=== PATIENT | female | born 1970 | race Caucasian/White ===

== ENCOUNTER 2017-05-17 13:06 | Observation (INO) | payer OTHER ==
[~2017-05-17] VITALS: Ht 167.6 cm; Wt 148.0 kg
[~2017-05-17 13:06] MED LIST: CLX20 PO; ESTR0.3T PO; LSN/20125 PO
[2017-05-17 14:20] LABS: BASO % 0.1 %; BASO ABS # 0.02 K/uL (0-0.2); EOS % 0.9 %; EOS ABS # 0.12 K/uL (0-0.5); HEMATOCRIT 38.7 % (37-47); HEMOGLOBIN 12.9 g/dL (12.0-16.0); IG# 0.03 K/uL (0.00-0.02); LYMPH % 12.5 %; LYMPH ABS # 1.67 K/uL (1.2-3.4); MEAN CELL VOLUME 85.8 fL (80-100); MEAN CORPUSCULAR HEMOGLOBIN 28.6 pg (25-34); MEAN CORPUSCULAR HGB CONC 33.3 g/dl (32-36); MEAN PLATELET VOLUME 10.1 fL (7.4-10.4); MONO % 4.6 %; MONO ABS # 0.62 K/uL (0.11-0.59); NEUT % 81.7 %; PLATELET COUNT 280 K/uL (130-400); RED CELL DISTRIBUTION WIDTH CV 14.1 % (11.5-14.5); RED CELL DISTRIBUTION WIDTH SD 43.8 fL (36.4-46.3); WHITE BLOOD COUNT 13.36 K/uL (4.8-10.8)
[2017-05-17 14:38] LABS: ALBUMIN 3.1 gm/dl (3.4-5.0); ALT/SGPT 16 U/L (12-78); AST/SGOT 9 U/L (15-37); BLOOD UREA NITROGEN 13 mg/dl (7-18); CALCIUM 8.4 mg/dl (8.5-10.1); CARBON DIOXIDE 27 mmol/L (21-32); CREATININE 0.73 mg/dl (0.60-1.20); GLUCOSE 94 mg/dl (70-99); POTASSIUM 3.8 mmol/L (3.5-5.1); SODIUM 139 mmol/L (136-145)
[2017-05-17 14:43] LABS: ALKALINE PHOSPHATASE 78 U/L (45-117); CKMB < 0.5 ng/ml (0.5-3.6); TOTAL PROTEIN 6.9 gm/dl (6.4-8.2)
[2017-05-17] MEDS ORDERED: ALBUT/IPRATROP 3MG/0.5MG NEB 3 ML VIAL INH STA (14:46)
[2017-05-17] MEDS ORDERED: CLOB-77 TOP (15:40)
[2017-05-17] MEDS ORDERED: LISI1TAB3 PO (15:40)
[2017-05-17] MEDS ORDERED: HYDR25TA5 PO (15:40)
[2017-05-17] MEDS ORDERED: CITA20TA9 PO (15:40)
[2017-05-17] MEDS ORDERED: GLC/500 PO (15:40)
[2017-05-17] MEDS ORDERED: ESTR0.3T PO (15:40)
[2017-05-17] MEDS ORDERED: PRMVC PV (15:40)
--- NOTE | 2017-05-17 16:45 | History and Physical ---
History & Physical Date & Time of Service: May 17, 2017 at 16:45 Chief Complaint: Sob- Referred By Primary Care Physician: Daphne Mejia D.O. History of Present Illness Source: patient, clinic records, hospital records This is a 47yo F with HTN, metabolic syndrome, LUIS on CPAP who presents with SOB and chest pressure beginning last evening. Patient was getting ready for bed last night when her noted that her breathing was shallow. States that she was becoming dyspneic when walking around the house, which is not normal for her. Feels unable to take a deep breath without coughing. Associated with chest pressure that feels like "a brick on my chest". No radiation to arms or neck and denies any true pain. Endorses episodes of sweating and chills last night. [place] SOB despite wearing CPAP machine. Went to PCP today and had a EKG and chest/thorax CTA with contrast. EKG did not show any acute changes and the CTA was negative for PE. Continued to feel SOB and have chest pressure at rest and was sent to the ED for further evaluation. During evaluation here, patient' s O2 saturation dropped to 83% with ambulation. No recent URI. Denies history of heart disease, DVT, asthma. Non-smoker. Has never had a stress test. Is on estrogen. Denies fever, chills, headache, lightheadedness, visual changes, diaphoresis, palpitations, abdominal pain, nausea, vomiting, bowel or bladder changes or LE swelling. + history of heart disease (father) Past Medical/Surgical History Medical Problems: (1) H/O renal calculi Status: Chronic (2) HTN (hypertension) Status: Chronic (3) Metabolic syndrome Status: Chronic (4) Mood disorder Status: Chronic (5) Morbid obesity Status: Chronic (6) LUIS on CPAP Status: Chronic Family History Diabetes mellitus FH: breast cancer FH: heart disease Hypertension Social History Smoking Status: Never Smoker Alcohol Use: occasionally Marital Status: Housing status: lives with family Occupational Status: employed Multi-Drug Resistant Organisms History of MDRO: No Allergies Coded Allergies: No Known Allergies (Verified , 05/17/17) Home Medications Scheduled Citalopram Hydrobromide (Celexa), 20 MG PO DAILY Clobetasol Propionate (Temovate), 1 APPLN TOP UD Estrogens, Conjugated (Premarin), 0.15 MG PO DAILY Hydrochlorothiazide (Hydrochlorothiazide), 25 MG PO DAILY Lisinopril (Zestril), 30 MG PO DAILY Metformin Hcl (Glucophage), 1,000 MG PO DAILY Review of Systems Ten systems reviewed and negative except as noted in the HPI. Physical Exam Vital Signs Date Time Temp Pulse Resp B/P (MAP) Pulse Ox O2 Delivery O2 Flow Rate FiO2 05/17/17 15:41 88 05/17/17 15:41 83 Room Air 05/17/17 14:58 84 21 132/74 92 05/17/17 13:54 87 05/17/17 13:48 87 05/17/17 13:47 92 Room Air 05/17/17 13:08 37.1 88 18 170/105 94 Room Air General Appearance: no apparent distress, + pertinent finding (Morbidly obese. Conversational, breathing comfortably on room air. ) Head: normocephalic, atraumatic Eyes: normal inspection, sclerae normal ENT: normal ENT inspection, hearing grossly normal, pharynx normal Neck: supple, thyroid normal, trachea midline Respiratory/Chest: chest non-tender, lungs clear, no respiratory distress, no accessory muscle use, + decreased breath sounds Cardiovascular: regular rate, rhythm, no murmur, normal peripheral pulses Abdomen/GI: non tender, soft, no organomegaly Back: normal inspection Extremities/Musculoskelatal: normal inspection, no calf tenderness, no pedal edema Neurologic/Psych: no motor/sensory deficits, alert, normal mood/affect, oriented x 3 Skin: normal color, warm/dry Diagnostics Laboratory Results Results Past 24 Hours Test 05/17/17 13:57 05/17/17 13:58 05/17/17 14:17 Range/Units Sodium Level 139 136-145 mmol/L Potassium Level 3.8 3.5-5.1 mmol/L Chloride Level 105 98-107 mmol/L Carbon Dioxide Level 27 21-32 mmol/L Anion Gap 7.0 3-11 mmol/L Blood Urea Nitrogen 13 7-18 mg/dl Creatinine 0.73 0.60-1.20 mg/dl Est Creatinine Clear Calc Drug Dose 147.1 ml/min Estimated GFR () 115.3 Estimated GFR (Non- 99.5 BUN/Creatinine Ratio 17.9 10-20 Random Glucose 94 70-99 mg/dl Calcium Level 8.4 8.5-10.1 mg/dl Total Bilirubin 0.5 0.2-1 mg/dl Aspartate Amino Transf (AST/SGOT) 9 15-37 U/L Alanine Aminotransferase (ALT/SGPT) 16 12-78 U/L Alkaline Phosphatase 78 45-117 U/L Total Creatine Kinase 63 26-192 U/L Creatine Kinase MB < 0.5 0.5-3.6 ng/ml Creatine Kinase MB Ratio 0-3.0 Total Protein 6.9 6.4-8.2 gm/dl Albumin 3.1 3.4-5.0 gm/dl Globulin 3.8 2.5-4.0 gm/dl Albumin/Globulin Ratio 0.8 0.9-2 White Blood Count 13.36 4.8-10.8 K/uL Red Blood Count 4.51 4.2-5.4 M/uL Hemoglobin 12.9 12.0-16.0 g/dL Hematocrit 38.7 37-47 % Mean Corpuscular Volume 85.8 80-100 fL Mean Corpuscular Hemoglobin 28.6 25-34 pg Mean Corpuscular Hemoglobin Concent 33.3 32-36 g/dl Platelet Count 280 130-400 K/uL Mean Platelet Volume 10.1 7.4-10.4 fL Neutrophils (%) (Auto) 81.7 % Lymphocytes (%) (Auto) 12.5 % Monocytes (%) (Auto) 4.6 % Eosinophils (%) (Auto) 0.9 % Basophils (%) (Auto) 0.1 % Neutrophils # (Auto) 10.90 1.4-6.5 K/uL Lymphocytes # (Auto) 1.67 1.2-3.4 K/uL Monocytes # (Auto) 0.62 0.11-0.59 K/uL Eosinophils # (Auto) 0.12 0-0.5 K/uL Basophils # (Auto) 0.02 0-0.2 K/uL RDW Standard Deviation 43.8 36.4-46.3 fL RDW Coefficient of Variation 14.1 11.5-14.5 % Immature Granulocyte % (Auto) 0.2 % Immature Granulocyte # (Auto) 0.03 0.00-0.02 K/uL Bedside Troponin I < 0.030 0-0.045 ng/ml Diagnostic Radiology Chest/thorax CTA (from [facility] today): IMPRESSION 1. No pulmonary embolism identified. 2. Scattered areas of mosaic ground-glass attenuation in the lungs suggesting small airways disease. EKG Normal sinus rhythm. Normal ECG Impression Assessment and Plan This is a 47yo F with HTN, metabolic syndrome, LUIS on CPAP who presents with SOB and chest pressure beginning last evening. SOB: -Chest/thorax CTA done in clinic to rule out PE -No pulmonary embolism identified -Scattered areas of mosaic ground-glass attenuation in the lungs suggesting small airways disease -O2 saturation in 90s at rest but decreased to 83% with ambulation -Likely a component of obesity hypoventilation syndrome -No URI symptoms but leukocytosis of 13.36 -Continue duonebs PRN -Monitor Chest pressure: -R/o ACS; risk factors include morbid obesity, HTN, family history of heart disease -Initial troponin negative -EKG- NSR. No acute ischemic changes -Trend serial cardiac enzymes -Fasting lipid panel, a1c -Check echo -Repeat EKG in am -Plan for stress test tomorrow -NPO after midnight except meds HTN: -Cont home lisinopril, HCTZ LUIS: -Cont cpap Metabolic syndrome: -Metformin held 2/2 contrast dye Mood disorder: -Cont SSRI DVT Ppx: SQ lovenox Code status: FULL PCP: Aliyah Mejia Dispo: Telemetry observation. Plan to return home once medically stable. Patient seen in collaboration with Dr. Hodges. Please see addendum. ATTENDING ADDENDUM : Patient seen and examined, care coordinated with Azra Andino PA-C. This is a 37-year-old female with past medical history of hypertension, obstructive sleep apnea on CPAP, presented to the ER with complaint of substernal chest discomfort shortness of breath dyspnea on exertion Patient had CT chest with contrast in out pt clinic which was negative for pulmonary embolism Physical exam ; as per Azra Andino PA-C Assessment and plan 1. Chest pain angina, rule out ACS at present pt is chest pain free Initial cardiac markers negative EKG normal sinus rhythm no acute ischemic change Serial cardiac markers will be followed Resting echo ordered Cardiac stress test tomorrow if serial cardiac markers are negative and patient is chest pain free 2. Hypertension Blood pressure stable continue home medication of lisinopril, hydrochlorothiazide 3.Obstructive sleep apnea Continue CPAP at night Full code DVT prophylaxis moderate to high risk secondary to obesity Subcu Lovenox ordered Disposition : Expected to be discharged home when medically stable Medicine follow-up with Dr. Daphne Otto Please refer to further documentation of Azra Andino PA-C for discussion of other chronic issue Sapna Hodges MD Level of Care Telemetry Resuscitation Status FULL RESUSCITATION VTE Prophylaxis VTE Risk Assessment Done? Y/N: Yes Risk Level: Moderate Given or contraindicated: Enoxaparin (Lovenox)SQ
[2017-05-17] MEDS ORDERED: IV FLUIDS COMPLETED PRN (17:00)
[2017-05-17] MEDS ORDERED: ONDANSETRON INJ 2 MG/ML 2 ML VIAL IV PRN (17:15)
[2017-05-17] MEDS ORDERED: ACETAMINOPHEN 325 MG TAB PO PRN (17:15)
[2017-05-17] MEDS ORDERED: ALUMINUM/MAGNESIUM/SIMETH (MAALOX MAX) 30 ML UDC PO PRN (17:15)
[2017-05-17] MEDS ORDERED: MAGNESIUM HYDROXIDE SUSP 30 ML UDC PO PRN (17:15)
[2017-05-17 18:13] VITALS: BP 161/83; PULSE 90; TEMP 36.9; O2SAT 92; Ht 167.6 cm; Wt 148.0 kg
[2017-05-17] MEDS ORDERED: ALBUT/IPRATROP 3MG/0.5MG NEB 3 ML VIAL INH PRN (18:15)
[2017-05-17] MEDS ORDERED: ENOXAPARIN 40 MG/0.4 ML SYR SC SCH (19:00)
[2017-05-17] MEDS ORDERED: ASPIRIN 81 MG ECTAB PO ONE (19:02)
[2017-05-17] MEDS ORDERED: LORAZEPAM 0.5 MG TAB PO PRN (19:15)
--- NOTE | 2017-05-17 19:27 | EMERGENCY ROOM VISIT NOTE ---
History First contact with patient: 13:32 Chief Complaint: REFERRED BY DOCTOR Stated Complaint: CHEST PAIN, SOB ON EXERTION History of Present Illness The patient is a 47 year old female who presents to the Emergency Room with complaints of chest pain and shortness of breath. The patient reports that she has had pain in the left shoulder/chest as well as a feeling of pressure in the center of her chest since yesterday evening. She has been short of breath associated with this. She states the symptoms started when she was walking from her bathroom to her bedroom. The symptoms worsen with exertion. She was seen by her primary care provider's office today and had an EKG and CAT scan to rule out blood clot which she states were normal. She was sent here because her oxygen levels remained low. She states that she has not been feeling well and her notes that she does not seem like herself. She has had a mild cough associated with the shortness of breath and the states that it seems like she is breathing differently than normal. Patient is on estrogen replacement, denies history of blood clots. She is not a smoker. She reports a history of hypertension and prediabetes on metformin. Her father of an NH and had his first NH at age 43. She denies any personal history of cardiac disease. She does admit to a history of obstructive sleep apnea and uses CPAP at night. Review of Systems A complete 10 point review of systems was reviewed with the patient with pertinent positives and negatives as per history of present illness. All else were negative. Past Medical/Surgical History Medical Problems: (1) H/O renal calculi (2) HTN (hypertension) (3) Metabolic syndrome (4) Mood disorder (5) Morbid obesity (6) LUIS on CPAP Surgical Problems: (1) S/P hysterectomy Family History Diabetes mellitus FH: breast cancer FH: heart disease Hypertension Social History Smoking Status: Never Smoker Alcohol Use: occasionally Marital Status: Housing Status: lives with family Occupation Status: employed Current/Historical Medications Scheduled Citalopram Hydrobromide (Celexa), 20 MG PO DAILY Clobetasol Propionate (Temovate), 1 APPLN TOP UD Estrogens, Conjugated (Premarin), 0.15 MG PO DAILY Hydrochlorothiazide (Hydrochlorothiazide), 25 MG PO DAILY Lisinopril (Zestril), 30 MG PO DAILY Metformin Hcl (Glucophage), 1,000 MG PO DAILY Physical Exam Vital Signs Date Time Temp Pulse Resp B/P (MAP) Pulse Ox O2 Delivery O2 Flow Rate FiO2 05/17/17 15:41 88 05/17/17 15:41 83 Room Air 05/17/17 14:58 84 21 132/74 92 05/17/17 13:54 87 05/17/17 13:48 87 05/17/17 13:47 92 Room Air 05/17/17 13:08 37.1 88 18 170/105 94 Room Air Physical Exam VITALS: Vitals are noted on the nurse's note and reviewed by myself. Vital signs stable. GENERAL: This is a 47-year-old female, in no acute distress, nondiaphoretic, well-developed well-nourished. SKIN: The skin was without rashes. EARS: External auditory canals clear, tympanic membranes pearly rios without erythema or effusion bilaterally. EYES: Pupils equal round and reactive to light and accommodation. MOUTH: Mucous membranes moist. Tonsils are not enlarged. Pharynx without erythema or exudate. NECK: Supple without nuchal rigidity. No lymphadenopathy. HEART: Regular rate and rhythm without murmurs gallops or rubs. LUNGS: Clear to auscultation bilaterally without wheezes, rales or rhonchi. No retractions or accessory muscle use. ABDOMEN: Positive bowel sounds x 4. Soft, nontender to palpation. NEURO: Patient was alert and oriented to person place and time. Medical Decision & Procedures Laboratory Results 05/17/17 13:58 Red Blood Count 4.51, Mean Corpuscular Volume 85.8, Mean Corpuscular Hemoglobin 28.6, Mean Corpuscular Hemoglobin Concent 33.3, Mean Platelet Volume 10.1, Neutrophils (%) (Auto) 81.7, Lymphocytes (%) (Auto) 12.5, Monocytes (%) (Auto) 4.6, Eosinophils (%) (Auto) 0.9, Basophils (%) (Auto) 0.1, Neutrophils # (Auto) 10.90, Lymphocytes # (Auto) 1.67, Monocytes # (Auto) 0.62, Eosinophils # (Auto) 0.12, Basophils # (Auto) 0.02 05/17/17 13:57 Test 05/17/17 13:57 05/17/17 13:58 05/17/17 14:17 Anion Gap 7.0 mmol/L (3-11) Est Creatinine Clear Calc Drug Dose 147.1 ml/min Estimated GFR () 115.3 Estimated GFR (Non- 99.5 BUN/Creatinine Ratio 17.9 (10-20) Calcium Level 8.4 mg/dl (8.5-10.1) Total Bilirubin 0.5 mg/dl (0.2-1) Aspartate Amino Transf (AST/SGOT) 9 U/L (15-37) Alanine Aminotransferase (ALT/SGPT) 16 U/L (12-78) Alkaline Phosphatase 78 U/L (45-117) Total Creatine Kinase 63 U/L (26-192) Creatine Kinase MB < 0.5 ng/ml (0.5-3.6) Creatine Kinase MB Ratio (0-3.0) Total Protein 6.9 gm/dl (6.4-8.2) Albumin 3.1 gm/dl (3.4-5.0) Globulin 3.8 gm/dl (2.5-4.0) Albumin/Globulin Ratio 0.8 (0.9-2) White Blood Count 13.36 K/uL (4.8-10.8) Red Blood Count 4.51 M/uL (4.2-5.4) Hemoglobin 12.9 g/dL (12.0-16.0) Hematocrit 38.7 % (37-47) Mean Corpuscular Volume 85.8 fL (80-100) Mean Corpuscular Hemoglobin 28.6 pg (25-34) Mean Corpuscular Hemoglobin Concent 33.3 g/dl (32-36) Platelet Count 280 K/uL (130-400) Mean Platelet Volume 10.1 fL (7.4-10.4) Neutrophils (%) (Auto) 81.7 % Lymphocytes (%) (Auto) 12.5 % Monocytes (%) (Auto) 4.6 % Eosinophils (%) (Auto) 0.9 % Basophils (%) (Auto) 0.1 % Neutrophils # (Auto) 10.90 K/uL (1.4-6.5) Lymphocytes # (Auto) 1.67 K/uL (1.2-3.4) Monocytes # (Auto) 0.62 K/uL (0.11-0.59) Eosinophils # (Auto) 0.12 K/uL (0-0.5) Basophils # (Auto) 0.02 K/uL (0-0.2) RDW Standard Deviation 43.8 fL (36.4-46.3) RDW Coefficient of Variation 14.1 % (11.5-14.5) Immature Granulocyte % (Auto) 0.2 % Immature Granulocyte # (Auto) 0.03 K/uL (0.00-0.02) Bedside Troponin I < 0.030 ng/ml (0-0.045) Medications Administered Medications (Trade) Dose Ordered Sig/Yahir Route Start Time Stop Time Status Last Admin Dose Admin Albuterol/ Ipratropium (Duoneb) 3 ml NOW STAT INH 05/17/17 14:46 05/17/17 14:47 DC 05/17/17 14:58 3 ML ECG Per My Interpretation Indication: SOB/dyspnea Rate (beats per minute): 88 Rhythm: normal sinus Findings: no acute ischemic change, no ectopy ED Course The patient was evaluated as above. Labs were drawn and IV access was obtained. Patient was medicated with a DuoNeb treatment. Patient was reevaluated and stated she felt somewhat better. An ambulatory trial was performed. Case was discussed with the [facility]ist, Dr. Hodges. They agreed to evaluate the patient for admission. Medical Decision Differential diagnosis includes acute coronary syndrome, pulmonary embolism, pneumothorax, reactive airway disease, pneumonia, pericarditis, myocarditis, endocarditis, anxiety, musculoskeletal pain, GERD, costochondritis, among others. The patient is a 47-year-old female who presents today complaining of exertional chest tightness/shortness of breath. Labs revealed mild leukocytosis of around 13,000. There was no significant anemia or concerning electrolyte abnormalities. Troponin was not elevated. Patient previously had an outpatient CT performed which was negative for pulmonary embolism. This did show some scattered opacities which could be consistent with small airway disease. EKG was interpreted by myself and did not show any ischemic changes. I feel the patient's symptoms are likely secondary to a pulmonary cause, however she had little improvement with DuoNeb and on ambulatory trial had reproducible chest tightness and decreased oxygen saturation. Due to the exertional component and patient's risk factors (obesity, hypertension, family history) I feel further workup is warranted to exclude cardiac source. Patient was admitted to the [facility] hospitalist service for further evaluation and care. Medication Reconcilliation Current Medication List: was personally reviewed by me Blood Pressure Screening Patient's blood pressure: Elevated blood pressure (Will be followed by hospitalist) Impression Primary Impression: SOB (shortness of breath) on exertion Additional Impression: Chest pain Departure Information Dispostion Still a Patient Condition FAIR Referrals Daphne Mejia D.O. (PCP) Forms WORK / SCHOOL INSTRUCTIONS, HOME CARE DOCUMENTATION FORM, IMPORTANT VISIT INFORMATION Patient Instructions My [facility] Health Problem Qualifiers
[2017-05-17 20:00] VITALS: BP 151/73; PULSE 87; TEMP 37.2; O2SAT 93
[2017-05-17 20:40] LABS: PTT PATIENT 27.2 SECONDS (21.0-31.0)
[2017-05-17 23:44] VITALS: BP 124/72; PULSE 84; TEMP 37; O2SAT 97
[2017-05-18 02:17] LABS: HEMATOCRIT 38.5 % (37-47); HEMOGLOBIN 12.5 g/dL (12.0-16.0); MEAN CELL VOLUME 86.9 fL (80-100); MEAN CORPUSCULAR HEMOGLOBIN 28.2 pg (25-34); MEAN CORPUSCULAR HGB CONC 32.5 g/dl (32-36); MEAN PLATELET VOLUME 10.2 fL (7.4-10.4); PLATELET COUNT 252 K/uL (130-400); RED CELL DISTRIBUTION WIDTH CV 14.1 % (11.5-14.5); RED CELL DISTRIBUTION WIDTH SD 44.7 fL (36.4-46.3); WHITE BLOOD COUNT 9.34 K/uL (4.8-10.8)
[2017-05-18 02:35] LABS: CALCIUM 8.5 mg/dl (8.5-10.1); CREATININE 0.78 mg/dl (0.60-1.20); POTASSIUM 3.6 mmol/L (3.5-5.1)
[2017-05-18 03:10] VITALS: BP 137/50; PULSE 78; TEMP 36.9; O2SAT 95
[2017-05-18 04:00] VITALS: O2SAT 95
[2017-05-18 07:43] VITALS: BP 141/82; PULSE 66; TEMP 37; O2SAT 98
[2017-05-18] MEDS ORDERED: ESTROGENS, CONJUGATED 0.3 MG TAB PO SCH (09:00)
[2017-05-18] MEDS ORDERED: ASPIRIN 81 MG ECTAB PO SCH (09:00)
[2017-05-18] MEDS ORDERED: CITALOPRAM 20 MG TAB PO SCH (09:00)
[2017-05-18] MEDS ORDERED: HYDROCHLOROTHIAZIDE 25 MG TAB PO SCH (09:00)
[2017-05-18] MEDS ORDERED: LISINOPRIL 10 MG TAB PO SCH (09:00)
--- NOTE | 2017-05-18 10:15 | Progress Note ---
Medicine Progress Note Date & Time of Visit: May 18, 2017 at 10:05. (Azra Andino, P.A.-C.) Subjective Patient seen and examined. Resting comfortably in bed. No longer experiencing chest tightness or SOB. Denies lightheadedness, headache, cough, palpitations, nausea, vomiting, LE swelling. Waiting for exercise stress test. (Azra Andino, P.A.-C.) Objective Last 8 Hrs Date Time Temp Pulse Resp B/P (MAP) Pulse Ox O2 Delivery O2 Flow Rate FiO2 05/18/17 07:43 37.0 66 20 141/82 (101) 98 05/18/17 04:00 95 Room Air 05/18/17 03:10 36.9 78 18 137/50 (79) 95 Physical Exam: General Appearance: WD/WN, no apparent distress Head: normocephalic, atraumatic Eyes: normal inspection, PERRL, EOMI ENT: hearing grossly normal, pharynx normal Neck: supple, no JVD, no adenopathy Respiratory/Chest: lungs clear to auscultation. No wheezes, rales or rhonci. No respiratory distress or accessory muscle use Cardiovascular: regular rate, rhythm, no murmur, normal peripheral pulses Abdomen/GI: normal bowel sounds, soft, non-tender to palpation Extremities/Musculoskelatal: normal inspection, no calf tenderness, normal capillary refill, no pedal edema Neurologic/Psych: alert, normal mood/affect, oriented x 3 Skin: normal color, warm/dry Laboratory Results: Last 24 Hours Test 05/17/17 13:57 05/17/17 13:58 05/17/17 14:17 05/17/17 19:54 Sodium Level 139 mmol/L Potassium Level 3.8 mmol/L Chloride Level 105 mmol/L Carbon Dioxide Level 27 mmol/L Anion Gap 7.0 mmol/L Blood Urea Nitrogen 13 mg/dl Creatinine 0.73 mg/dl Est Creatinine Clear Calc Drug Dose 147.1 ml/min Estimated GFR () 115.3 Estimated GFR (Non- 99.5 BUN/Creatinine Ratio 17.9 Random Glucose 94 mg/dl Calcium Level 8.4 mg/dl Total Bilirubin 0.5 mg/dl Aspartate Amino Transf (AST/SGOT) 9 U/L Alanine Aminotransferase (ALT/SGPT) 16 U/L Alkaline Phosphatase 78 U/L Total Creatine Kinase 63 U/L Creatine Kinase MB < 0.5 ng/ml Creatine Kinase MB Ratio Total Protein 6.9 gm/dl Albumin 3.1 gm/dl Globulin 3.8 gm/dl Albumin/Globulin Ratio 0.8 White Blood Count 13.36 K/uL Red Blood Count 4.51 M/uL Hemoglobin 12.9 g/dL Hematocrit 38.7 % Mean Corpuscular Volume 85.8 fL Mean Corpuscular Hemoglobin 28.6 pg Mean Corpuscular Hemoglobin Concent 33.3 g/dl Platelet Count 280 K/uL Mean Platelet Volume 10.1 fL Neutrophils (%) (Auto) 81.7 % Lymphocytes (%) (Auto) 12.5 % Monocytes (%) (Auto) 4.6 % Eosinophils (%) (Auto) 0.9 % Basophils (%) (Auto) 0.1 % Neutrophils # (Auto) 10.90 K/uL Lymphocytes # (Auto) 1.67 K/uL Monocytes # (Auto) 0.62 K/uL Eosinophils # (Auto) 0.12 K/uL Basophils # (Auto) 0.02 K/uL RDW Standard Deviation 43.8 fL RDW Coefficient of Variation 14.1 % Immature Granulocyte % (Auto) 0.2 % Immature Granulocyte # (Auto) 0.03 K/uL Bedside Troponin I < 0.030 ng/ml Prothrombin Time 10.1 SECONDS Prothromb Time International Ratio 1.0 Activated Partial Thromboplast Time 27.2 SECONDS Partial Thromboplastin Ratio 1.0 Troponin I < 0.015 ng/ml Test 05/18/17 01:59 05/18/17 08:11 White Blood Count 9.34 K/uL Red Blood Count 4.43 M/uL Hemoglobin 12.5 g/dL Hematocrit 38.5 % Mean Corpuscular Volume 86.9 fL Mean Corpuscular Hemoglobin 28.2 pg Mean Corpuscular Hemoglobin Concent 32.5 g/dl RDW Standard Deviation 44.7 fL RDW Coefficient of Variation 14.1 % Platelet Count 252 K/uL Mean Platelet Volume 10.2 fL Sodium Level 138 mmol/L Potassium Level 3.6 mmol/L Chloride Level 105 mmol/L Carbon Dioxide Level 27 mmol/L Anion Gap 6.0 mmol/L Blood Urea Nitrogen 14 mg/dl Creatinine 0.78 mg/dl Est Creatinine Clear Calc Drug Dose 136.2 ml/min Estimated GFR () 106.4 Estimated GFR (Non- 91.8 BUN/Creatinine Ratio 18.3 Random Glucose 122 mg/dl Estimated Average Glucose 126 mg/dl Hemoglobin A1c 6.0 % Calcium Level 8.5 mg/dl Troponin I < 0.015 ng/ml < 0.015 ng/ml Triglycerides Level 205 mg/dl Cholesterol Level 150 mg/dl HDL Cholesterol 38 mg/dl LDL Cholesterol, Calculated 71 mg/dl VLDL Cholesterol, Calculated 41 mg/dl Cholesterol/HDL Ratio 3.9 (Azra Andino, P.A.-C.) Assessment & Plan This is a 47yo F with HTN, metabolic syndrome, LUIS on CPAP who presents with SOB and chest pressure beginning last evening that has since resolved. SOB: improved -Chest/thorax CTA done in clinic to rule out PE -No pulmonary embolism identified -Scattered areas of mosaic ground-glass attenuation in the lungs suggesting small airways disease -O2 saturation in 90s at rest but decreased to 83% with ambulation -Likely a component of obesity hypoventilation syndrome -No URI symptoms. Leukocytosis of 13.36 from yesterday has resolved -Better air movement on exam -Continue duonebs PRN -Monitor Chest pressure: resolved -R/o ACS; risk factors include morbid obesity, HTN, family history of heart disease -Initial troponin negative -EKG- NSR. No acute ischemic changes -Troponin negative x 3 -A1c of 6, indicating risk for development of diabetes -TG high at 205, rest of fasting lipid panel wnl -Repeat EKG in am without ischemic change -Plan for exercise stress test today HTN: -Cont home lisinopril, HCTZ LUIS: -Cont cpap Metabolic syndrome: -Metformin held 2/2 contrast dye Mood disorder: -Cont SSRI DVT Ppx: SQ lovenox Code status: FULL PCP: Aliyah Mejia Dispo: Telemetry observation. Plan to return home once medically stable. Patient seen in collaboration with Dr. Hsu. Please see addendum. Current Inpatient Medications: Current Inpatient Medications Medications (Trade) Dose Ordered Sig/Yahir Route Start Time Stop Time Status Last Admin Dose Admin Miscellaneous (Iv Fluids Completed) 1 ea PRN PRN N/A 05/17/17 17:00 05/17/18 16:59 Enoxaparin Sodium (Lovenox Inj) 40 mg Q24H SC 2/26/18 19:00 06/16/17 18:59 05/17/17 20:42 40 MG Acetaminophen (Tylenol Tab) 650 mg Q4H PRN PO 05/17/17 17:15 06/16/17 17:14 Al Hydrox/Mg Hydrox/Simethicone (Maalox Max Susp) 15 ml Q4H PRN PO 05/17/17 17:15 06/16/17 17:14 Magnesium Hydroxide (Milk Of Magnesia Susp) 30 ml Q12H PRN PO 05/17/17 17:15 06/16/17 17:14 Ondansetron HCl (Zofran Inj) 4 mg Q6H PRN IV 05/17/17 17:15 06/16/17 17:14 Citalopram Hydrobromide (celeXA TAB) 20 mg DAILY PO 05/18/17 09:00 06/17/17 08:59 05/18/17 09:34 20 MG Estrogens Conjugated (Premarin Tab) 0.15 mg DAILY PO 05/18/17 09:00 06/17/17 08:59 05/18/17 09:35 0.15 MG Hydrochlorothiazide (Hydrochlorothiazide Tab) 25 mg DAILY PO 05/18/17 09:00 06/17/17 08:59 05/18/17 09:36 25 MG Lisinopril (Zestril Tab) 30 mg DAILY PO 05/18/17 09:00 06/17/17 08:59 05/18/17 09:36 30 MG Albuterol/ Ipratropium (Duoneb) 3 ml Q4H PRN INH 05/17/17 18:15 06/16/17 18:14 Aspirin (Ecotrin Tab) 81 mg QAM PO 05/18/17 09:00 06/17/17 08:59 05/18/17 09:34 81 MG Lorazepam (Ativan Tab) 0.5 mg Q12 PRN PO 05/17/17 19:15 06/16/17 19:14 05/17/17 21:16 0.5 MG (Azra Andino ., P.A.-C.) ADDENDUM: This is a 47 year old female with a PMH of prediabetes, morbid obesity, metabolic syndrome, LUIS on CPAP and nocturnal O2, HTN - presented with dyspnea on exertion and chest heaviness. She was placed under observation in tele. On exam: RRR, +S1, S2 on cardiac exam, normal lung exam as well +morbid obesity noted Had a cardiac stress test which was nonischemic. Plan is to discharge patient home, outpatient PCP follow-up; outpatient repeat sleep study; and possibly PFTs (Mabel Hsu, DO)
[2017-05-18] MEDS ORDERED: PERFLUTREN LIPID MICROSPHERE (DEFINITY) IV ONE (11:50)
--- NOTE | 2017-05-18 12:25 | DOBUTAMINE ECHO ---
*NOTICE TO RECEIVING [employer] This information is strictly Confidential and protected under [place] law. [place] law prohibits you from making any further disclosure of this information unless further disclosure is expressly permitted by the written consent of the person to whom it pertains or is authorized by law. A general authorization for the release of medical or other information is not sufficient for this purpose. Hospital accepts no responsibility if the information is made available to any other person, INCLUDING THE PATIENT. Interpretation Summary * Name: SHA SWAN Study Date: 05/18/2017 10:14 AM BP: 145/64 mmHg * Patient Location: 2T\S\S238\S\2 HR: 96 * : 1970 (M/d/yyyy) Gender: Female Height: 66 in * Age: 47 yrs Ethnicity: CA Weight: 326 lb * Ordering Physician: Azra Andino * Referring Physician: Self, Referred * Performed By: Stella Stephen RDCS * * Reason For Study: Chest Pain * BSA: 2.5 m2 * -- Conclusions -- * Nonischemic exercise stress echocardiogram. * No arrhythmias. * Normal HR and BP response to exercise. * Markedly reduced exercise tolerance at 3:30 Jose L protocol. * Symptoms of shortness of breath were reproduced. * Patient became very anxious during exam. * At rest, normal LV chamber size and wall thickness. * Normal LV systolic function, EF 60-65%. * No segmental left ventricular wall motion abnormalities are noted. * Grade II diastolic dysfunction. * No significant valvular pathology. Procedure Details * ECHOEX, CPT #[id number] * ECHO DOPPLER, CPT #[id number] * ECHO COLOR FLOW, CPT #[id number] * A contrast injection of Definity was performed to improve assessment of LV function. * Contrast was injected into an intravenous site in the left arm. * One vial of Definity ultrasound contrast was diluted in normal saline to a total volume of 10 ml. A total of '4' ml of solution was administered during imaging. * Lot # [id number] of Definity utilized for procedure. * Expiration date eb. * The attending nurse who injected the contrast agent was Libby Perez RN. Left Ventricle * The left ventricle is normal in size. * There is normal left ventricular wall thickness. * Ejection Fraction = 60-65%. * Left ventricular systolic function is normal. * No segmental left ventricular wall motion abnormalities are noted. * Resting wall motion: Normal. Stress wall motion: Appropriate increase in Left ventricular systolic function and decrease in cavity size. No stress induced segmental wall motion abnormalities. Right Ventricle * The right ventricular cavity size is normal (basal dimension <4.2 cm in right ventricular apical 4-chamber view). * The right ventricular systolic function is normal as assessed by tricuspid annular plane systolic excursion (TAPSE) (normal >1.5 cm). Atria * The left atrial size is normal. * Right atrial size is normal. * No ASD detected; PFO is not assessed. Mitral Valve * The mitral valve is normal in structure and function. Tricuspid Valve * The tricuspid valve is normal in structure and function. Aortic Valve * The aortic valve is not well visualized. * There is no significant aortic regurgitation. Pulmonic Valve * The pulmonary valve is not well seen, but the Doppler examination is normal without significant regurgitation or stenosis. Great Vessels * The aortic root is normal size. Pericardium * There is no pericardial effusion. Stress Parameters * Normal baseline electrocardiogram. * The stress ECG response was normal * No arrhythmia were noted with stress. * The stress portion of this study was personally supervised by the undersigned interpreting physician. * Rest heart rate was '96' BPM. * Rest blood pressure was '145/64' * Maximum heart rate achieved was 155 bpm. * Maximum heart rate was 88 % of maximum age-predicted heart rate. * Maximum blood pressure was '177/64' * Total exercise time was '03:31' * Maximum exercise MET level achieved was '5.20' METS * Maximum treadmill speed was '2.50' miles per hour. * Maximum treadmill elevation was '12.00'% grade. Left Ventricular Diastolic Function * Grade I diastolic dysfunction, (abnormal relaxation pattern). MMode 2D Measurements and Calculations IVSd 0.91 cm IVSs 1.4 cm LVIDd 5.8 cm LVIDs 3.9 cm LVPWd 0.91 cm LVPWs 1.4 cm IVS/LVPW 1.0 FS 32.4 % EDV(Teich) 169.6 ml ESV(Teich) 67.9 ml EF(Teich) 60.0 % EDV(cubed) 199.8 ml ESV(cubed) 61.6 ml EF(cubed) 69.2 % % IVS thick 52.0 % % LVPW thick 54.2 % LV mass(C)d 208.1 grams LV mass(C)dI 84.6 grams/m\S\2 LV mass(C)s 202.3 grams LV mass(C)sI 82.2 grams/m\S\2 SV(Teich) 101.7 ml SI(Teich) 41.3 ml/m\S\2 SV(cubed) 138.2 ml SI(cubed) 56.1 ml/m\S\2 Ao root diam 2.8 cm Ao root area 6.0 cm\S\2 ACS 1.9 cm LA dimension 3.6 cm LA/Ao 1.3 LVAd ap4 37.1 cm\S\2 LVLd ap4 9.2 cm EDV(MOD-sp4) 127.6 ml EDV(sp4-el) 127.0 ml LVAs ap4 21.6 cm\S\2 LVLs ap4 7.7 cm ESV(MOD-sp4) 53.5 ml ESV(sp4-el) 51.4 ml EF(MOD-sp4) 58.1 % EF(sp4-el) 59.6 % LVAd ap2 30.5 cm\S\2 LVLd ap2 8.0 cm EDV(MOD-sp2) 91.4 ml EDV(sp2-el) 98.1 ml LVAs ap2 15.4 cm\S\2 LVLs ap2 6.8 cm ESV(MOD-sp2) 29.8 ml ESV(sp2-el) 29.6 ml EF(MOD-sp2) 67.4 % EF(sp2-el) 69.9 % LVLd %diff -14.09 % EDV(MOD-bp) 112.2 ml LVLs %diff -13.05 % ESV(MOD-bp) 41.7 ml EF(MOD-bp) 62.9 % SV(MOD-sp4) 74.2 ml SI(MOD-sp4) 30.1 ml/m\S\2 SV(MOD-sp2) 61.6 ml SI(MOD-sp2) 25.0 ml/m\S\2 SV(MOD-bp) 70.5 ml SI(MOD-bp) 28.7 ml/m\S\2 SV(sp4-el) 75.7 ml SI(sp4-el) 30.7 ml/m\S\2 SV(sp2-el) 68.5 ml SI(sp2-el) 27.8 ml/m\S\2 Doppler Measurements and Calculations MV E max nikolas 105.8 cm/sec MV A max nikolas 91.9 cm/sec MV E/A 1.2 MV dec time 0.20 sec Ao V2 max 156.2 cm/sec Ao max PG 9.8 mmHg Ao max PG (full) 4.0 mmHg LV V1 max PG 5.8 mmHg LV V1 max 120.3 cm/sec PA V2 max 95.8 cm/sec PA max PG 3.7 mmHg
--- NOTE | 2017-05-18 12:48 | Discharge Instructions ---
Discharge Instructions Date of Service May 18, 2017. Admission Reason for Admission: Chest Pain, Sob On Exertion Discharge Discharge Diagnosis / Problem: Chest Pain/Pressure - likely releated to hypoventilation or sleep apnea Discharge Goals Goal(s): Decrease discomfort, Improve function, Diagnostic testing, Therapeutic intervention Activity Recommendations Activity Limitations: resume your previous activity . Instructions / Follow-Up Instructions / Follow-Up Please follow-up with Dr. Mejia on May 25 at 10:15AM * Your treadmill stress test was negative and nonischemic (not heart related) * Your chest pressure could be related to sleep apnea or obesity hypoventilation * You should have a sleep study done as an outpatient; your CPAP may need adjustments * You would also benefit from a pulmonary function test as an outpatient Current Hospital Diet Patient's current hospital diet: AHA Diet (Heart Healthy) Discharge Diet Recommended Diet: AHA Diet (Heart Healthy) Pending Studies Studies pending at discharge: no Laboratory Results Hemoglobin A1c Test 05/18/17 01:59 Range/Units Estimated Average Glucose 126 mg/dl Hemoglobin A1c 6.0 H 4.5-5.6 % Lipid Panel Test 05/18/17 01:59 Range/Units Triglycerides Level 205 H 0-150 mg/dl Cholesterol Level 150 0-200 mg/dl HDL Cholesterol 38 mg/dl Cholesterol/HDL Ratio 3.9 LDL Cholesterol, Calculated 71 mg/dl Medical Emergencies . Who to Call and When: Medical Emergencies: If at any time you feel your situation is an emergency, please call 911 immediately. . Non-Emergent Contact Non-Emergency issues call your: Primary Care Provider . . "Provider Documentation" section prepared by Mabel Hsu. . VTE Core Measure Inpt VTE Proph given/why not?: Enoxaparin (Lovenox)SQ
[2017-05-18 12:50] VITALS: BP 141/82; PULSE 66; TEMP 37; O2SAT 98
--- NOTE | 2017-05-18 12:51 | Discharge Summary ---
Discharge Summary Date of Service May 18, 2017. Discharge Summary Admission Date: May 17, 2017 at 16:18 Discharge Date: May 18, 2017 Discharge Disposition: Home Principal Diagnosis: Metabolic Syndrome Morbid Obesity Chest Tightness - likely secondary to sleep apnea LUIS with nocturnal O2 and CPAP use HTN Prediabetes Medication Reconciliation Continued Medications: Citalopram Hydrobromide (Celexa) 20 Mg Tab 20 MG PO DAILY Clobetasol Propionate (Temovate) 0.05 % Cre 1 APPLN TOP UD Estrogens, Conjugated (Premarin) 0.3 Mg Tab 0.15 MG PO DAILY Hydrochlorothiazide (Hydrochlorothiazide) 25 Mg Tab 25 MG PO DAILY Lisinopril (Zestril) 30 Mg Tab 30 MG PO DAILY Metformin Hcl (Glucophage) 500 Mg Tab 1000 MG PO DAILY Admission Information HPI (per Admitting provider): This is a 47yo F with HTN, metabolic syndrome, LUIS on CPAP who presents with SOB and chest pressure beginning last evening. Patient was getting ready for bed last night when her noted that her breathing was shallow. States that she was becoming dyspneic when walking around the house, which is not normal for her. Feels unable to take a deep breath without coughing. Associated with chest pressure that feels like "a brick on my chest". No radiation to arms or neck and denies any true pain. Endorses episodes of sweating and chills last night. [place] SOB despite wearing CPAP machine. Went to PCP today and had a EKG and chest/thorax CTA with contrast. EKG did not show any acute changes and the CTA was negative for PE. Continued to feel SOB and have chest pressure at rest and was sent to the ED for further evaluation. During evaluation here, patient' s O2 saturation dropped to 83% with ambulation. No recent URI. Denies history of heart disease, DVT, asthma. Non-smoker. Has never had a stress test. Is on estrogen. Denies fever, chills, headache, lightheadedness, visual changes, diaphoresis, palpitations, abdominal pain, nausea, vomiting, bowel or bladder changes or LE swelling. + history of heart disease (father) Physical Exam (per Admitting): General Appearance: no apparent distress, + pertinent finding (Morbidly obese. Conversational, breathing comfortably on room air. ) Head: normocephalic, atraumatic Eyes: normal inspection, sclerae normal ENT: normal ENT inspection, hearing grossly normal, pharynx normal Neck: supple, thyroid normal, trachea midline Respiratory/Chest: chest non-tender, lungs clear, no respiratory distress, no accessory muscle use, + decreased breath sounds Cardiovascular: regular rate, rhythm, no murmur, normal peripheral pulses Abdomen/GI: non tender, soft, no organomegaly Back: normal inspection Extremities/Musculoskelatal: normal inspection, no calf tenderness, no pedal edema Neurologic/Psych: no motor/sensory deficits, alert, normal mood/affect, oriented x 3 Skin: normal color, warm/dry Hospital Course This is a 47yo F with HTN, metabolic syndrome, LUIS on CPAP who presents with SOB and chest pressure beginning last evening that has since resolved. SOB: improved -Chest/thorax CTA done in clinic to rule out PE -No pulmonary embolism identified -Scattered areas of mosaic ground-glass attenuation in the lungs suggesting small airways disease -O2 saturation in 90s at rest but decreased to 83% with ambulation -Likely a component of obesity hypoventilation syndrome -No URI symptoms. Leukocytosis of 13.36 from yesterday has resolved -Better air movement on exam -Continue duonebs PRN -Monitor Chest pressure: resolved -R/o ACS; risk factors include morbid obesity, HTN, family history of heart disease -Initial troponin negative -EKG- NSR. No acute ischemic changes -Troponin negative x 3 -A1c of 6, indicating risk for development of diabetes -TG high at 205, rest of fasting lipid panel wnl -Repeat EKG in am without ischemic change -Plan for exercise stress test today HTN: -Cont home lisinopril, HCTZ LUIS: -Cont cpap Metabolic syndrome: -Metformin held 2/2 contrast dye Mood disorder: -Cont SSRI DVT Ppx: SQ lovenox Code status: FULL PCP: Aliyah Mejia Dispo: Telemetry observation. Plan to return home once medically stable. ADDENDUM: This is a 47 year old female with a PMH of prediabetes, morbid obesity, metabolic syndrome, LUIS on CPAP and nocturnal O2, HTN - presented with dyspnea on exertion and chest heaviness. She was placed under observation in tele. On exam: RRR, +S1, S2 on cardiac exam, normal lung exam as well +morbid obesity noted Had a cardiac stress test which was nonischemic. Plan is to discharge patient home, outpatient PCP follow-up; outpatient repeat sleep study; and possibly PFTs Total time spent on discharge = 25 minutes This includes examination of the patient, discharge planning, medication reconciliation, and communication with other providers. Discharge Instructions Please follow-up with Dr. Mejia on May 25 at 10:15AM * Your treadmill stress test was negative and nonischemic (not heart related) * Your chest pressure could be related to sleep apnea or obesity hypoventilation * You should have a sleep study done as an outpatient; your CPAP may need adjustments * You would also benefit from a pulmonary function test as an outpatient
== END 2017-05-18 13:15 | disposition home or self-care (01) ==
LOC: C.EDB 13:07 → C.2T 16:18 → ENRESERV 17:14
PROVIDERS: ADMIT Hospitalist; ATTEND Internal Medicine
DX: R07.9 Chest pain, unspecified (principal); E88.81 Metabolic syndrome and other insulin resistance; G47.33 Obstructive sleep apnea (adult) (pediatric); I10 Essential (primary) hypertension; R73.03 Prediabetes; E66.01 Morbid (severe) obesity due to excess calories; F39 Unspecified mood [affective] disorder; Z68.43 Body mass index [BMI] 50.0-59.9, adult; Z99.89 Dependence on other enabling machines and devices; Z99.81 Dependence on supplemental oxygen; Z87.442 Personal history of urinary calculi; Z90.710 Acquired absence of both cervix and uterus; Z83.3 Family history of diabetes mellitus; Z82.49 Family history of ischemic heart disease and other diseases of the circulatory system; Z80.3 Family history of malignant neoplasm of breast

== ENCOUNTER 2020-07-13 21:42 | Inpatient (IN) ==
[2020-07-13] MEDS ORDERED: SODIUM CHLORIDE 0.9% 1000ML 1,000 ML IV ONE (21:59)
--- NOTE | 2020-07-13 22:07 | Emergency Department Note ---
History of Present Illness General Chief complaint: Back Injury/Pain Stated complaint: BACK PAIN, FEVER, KIDNEY STONES Time Seen by Provider: 07/13/20 21:49 Source: patient and family (Spouse who is at the bedside) Limitations: no limitations History of Present Illness Maximum Pain Intensity: 4 This patient comes in complaining of mild low back pain that started today she had low-grade temperature 99.3. She seen 1 week ago and had a kidney stone on the left which was obstructing she has passed the stone and has it in a sample container. There was another stone on the CAT scan last week which were within the kidney and nonobstructing. She feels pretty good at present but the reason she came is because she had a low-grade temperature denies dysuria hematuria. She had a Covid vaccine x2 several months ago and said no cough or shortness of breath. No nausea or vomiting. No numbness weakness. No diarrhea or constipation. She did take some Advil earlier. Home Medications Medication Instructions Recorded Confirmed Type albuterol sulfate 2.5 mg INHALATION Q4H PRN 07/13/20 07/13/20 History atorvastatin [Lipitor] 20 mg PO CQWK 07/13/20 07/13/20 History citalopram 20 mg PO DAILY 07/13/20 07/13/20 History clobetasol 1 applic TOPICAL QAM 07/13/20 07/13/20 History gabapentin 600 mg PO HS 07/13/20 07/13/20 History hydrochlorothiazide 25 mg PO DAILY 07/13/20 07/13/20 History lisinopril 30 mg PO DAILY 07/13/20 07/13/20 History metformin 1,000 mg PO DAILY 07/13/20 07/13/20 History ondansetron 4 mg TRANSLINGUAL Q6 PRN 07/13/20 07/13/20 History tamsulosin 0.4 mg PO DAILY 07/13/20 07/13/20 History Allergies Allergy/AdvReac Type Severity Reaction Status Date / Time LATEX TAPE AdvReac Rash Uncoded 07/13/20 22:29 Past Med/Surg History Medical History Dyslipidemia H/O renal calculi HTN (hypertension) Metabolic syndrome Mood disorder LUIS on CPAP Surgical History S/P hysterectomy Social History Smoking Status: Never smoker Feels Safe at Home: Yes Review of Systems A total of 10 systems reviewed and were otherwise negative Physical Exam Vital Signs Vital Signs - 24 hr 07/13/20 21:43 07/13/20 23:24 07/14/20 01:16 Temperature 36.7 C Temperature Source Oral Pulse Rate 83 Pulse Rate [Finger] 80 74 Pulse Rhythm [Finger] Regular Regular Respiratory Rate 18 18 18 Respiratory Effort / Characteristics Non-Labored Spontaneous Non-Labored Spontaneous Non-Labored Spontaneous Respiratory Depth Normal Normal Normal Respiratory Pattern Regular Regular Regular Blood Pressure 192/92 H Blood Pressure [Left Arm] 147/76 H 135/70 Blood Pressure Mean 125 Blood Pressure Mean [Left Arm] 99 91 Blood Pressure Position Sitting Blood Pressure Position [Left Arm] Lying Lying Pulse Oximetry 96 96 96 Oxygen Delivery Method Room Air Room Air Room Air Sepsis Recent Fever Within 48 Hours No Sepsis New/Unexplained Change in Mental Status No Sepsis Action Taken by Nursing No Action Required General: Well developed well nourished middle-aged female who appears in no acute distress, breathing comfortably on room air. Normal speech HEENT: Normal cephalic atraumatic. Pupils are equal round and reactive to light. Extraocular movements are intact. Oropharynx is pink with moist mucous membranes. No swelling of the mouth lips or tongue. Neck: Supple with a midline trachea. No meningeal signs or stiffness, no JVD or bruits. No Stridor. Chest: Clear to auscultation bilaterally. No wheezes or rhonchi. No increased work of breathing. Heart: Regular rate and rhythm without murmurs or gallops. Abdomen: Soft nontender, nondistended without rebound guarding or rigidity. Extremities: No cyanosis clubbing or edema. No calf tenderness or assymetry Spine/Back. Non tender to palpation. No CVA tenderness Skin: Good turgor without rashes. Neurologic exam: Cranial nerves two through 12 are intact. Motor and sensation are intact and symmetrical throughout. Course Administered Medications Discontinued Medications Sodium Chloride (Nss 1000ml) 1,000 mls @ 999 mls/hr IV .Q1H1M ONE Stop: 07/13/20 22:59 Last Infusion: 07/13/20 23:22 Dose: 0 mls/hr Documented by: [id number] Admin: 07/13/20 22:17 Dose: 999 mls/hr Documented by: [id number] Ketorolac Tromethamine (Ketorolac Tromethamine 15 Mg/Ml Vial) 15 mg IV NOW ONE Stop: 07/13/20 23:12 Last Admin: 07/13/20 23:23 Dose: 15 mg Documented by: [id number] Medical Decision Making Differential Diagnosis Kidney stone, kidney infection, obstructive uropathy, electrolyte or metabolic abnormality, intra-abdominal process Medical Records Attestation: I reviewed the patient's medical records. Home Medications Current Medication List: was personally reviewed by me Laboratory Data Attestation: I reviewed the patient's lab results. Result diagrams: 07/13/20 22:06 07/13/20 22:06 Lab Results 07/13/20 07/13/20 07/13/20 Range/Units 22:00 22:06 22:06 WBC 13.79 H (4.8-10.8) K/uL RBC 4.76 (4.2-5.4) M/uL Hgb 13.6 (12.0-16.0) g/dL Hct 41.0 (37-47) % MCV 86.1 (80-100) fL MCH 28.6 (25-34) pg MCHC 33.2 (32-36) g/dL RDW Std Deviation 42.0 (36.4-46.3) fL RDW Coeff of Hugo 13.3 (11.5-14.5) % Plt Count 314 (130-400) K/uL MPV 10.6 H (7.4-10.4) fL Immature Gran % (Auto) 0.3 % Neut % (Auto) 74.4 % Lymph % (Auto) 16.6 % [place] % (Auto) 7.2 % Eos % (Auto) 1.4 % Baso % (Auto) 0.1 % Neut # (Auto) 10.26 H (1.4-6.5) K/uL Lymph # (Auto) 2.29 (1.2-3.4) K/uL [place] # (Auto) 0.99 H (0.11-0.59) K/uL Eos # (Auto) 0.19 (0-0.5) K/uL Baso # (Auto) 0.02 (0-0.2) K/uL Immature Gran # (Auto) 0.04 H (0.00-0.02) K/uL Sodium 138 (136-145) mmol/L Potassium 3.5 (3.5-5.1) mmol/L Chloride 104 (98-107) mmol/L Carbon Dioxide 30 (21-32) mmol/L Anion Gap 4.0 (3-11) BUN 17 (7-18) mg/dl Creatinine 0.72 (0.6-1.2) mg/dl Est Cr Clr Drug Dosing 144.5 ml/min Est GFR ( Amer) 114.8 Est GFR (Non-Af Amer) 99.0 BUN/Creatinine Ratio 24.2 H (10-20) Glucose 139 H (70-99) mg/dl Calcium 9.1 (8.5-10.1) mg/dl Magnesium 2.1 (1.8-2.4) mg/dl Total Bilirubin 0.4 (0.2-1) mg/dl AST 12 L (15-37) U/L ALT 29 (12-78) U/L Alkaline Phosphatase 83 (45-117) U/L Total Protein 7.3 (6.4-8.2) gm/dl Albumin 3.6 (3.4-5.0) gm/dl Globulin 3.7 (2.5-4.0) gm/dl Albumin/Globulin Ratio 1.0 (0.9-2) Triglycerides 217 H (0-150) mg/dl Lipase 1864 H (73-393) U/L Urine Color Yellow Urine Appearance Clear (Clear) Urine pH 7.0 (4.5-7.5) Ur Specific [place] 1.021 (1.000-1.030) Urine Protein Negative (Negative) Urine Glucose (UA) Negative (Negative) Urine Ketones Negative (Negative) Urine Blood Negative (Negative) Urine Nitrite Negative (Negative) Urine Bilirubin Negative (Negative) Urine Urobilinogen Negative (Negative) Ur Leukocyte Esterase Negative (Negative) COVID-19 Eval Order SARS-CoV-2 (PCR) (Negative) Influenza Type A (PCR) (Neg) Influenza Type B (PCR) (Neg) RSV (RT-PCR) (Neg) 07/13/20 07/13/20 Range/Units 23:40 23:40 WBC (4.8-10.8) K/uL RBC (4.2-5.4) M/uL Hgb (12.0-16.0) g/dL Hct (37-47) % MCV (80-100) fL MCH (25-34) pg MCHC (32-36) g/dL RDW Std Deviation (36.4-46.3) fL RDW Coeff of Hugo (11.5-14.5) % Plt Count (130-400) K/uL MPV (7.4-10.4) fL Immature Gran % (Auto) % Neut % (Auto) % Lymph % (Auto) % [place] % (Auto) % Eos % (Auto) % Baso % (Auto) % Neut # (Auto) (1.4-6.5) K/uL Lymph # (Auto) (1.2-3.4) K/uL [place] # (Auto) (0.11-0.59) K/uL Eos # (Auto) (0-0.5) K/uL Baso # (Auto) (0-0.2) K/uL Immature Gran # (Auto) (0.00-0.02) K/uL Sodium (136-145) mmol/L Potassium (3.5-5.1) mmol/L Chloride (98-107) mmol/L Carbon Dioxide (21-32) mmol/L Anion Gap (3-11) BUN (7-18) mg/dl Creatinine (0.6-1.2) mg/dl Est Cr Clr Drug Dosing ml/min Est GFR ( Amer) Est GFR (Non-Af Amer) BUN/Creatinine Ratio (10-20) Glucose (70-99) mg/dl Calcium (8.5-10.1) mg/dl Magnesium (1.8-2.4) mg/dl Total Bilirubin (0.2-1) mg/dl AST (15-37) U/L ALT (12-78) U/L Alkaline Phosphatase (45-117) U/L Total Protein (6.4-8.2) gm/dl Albumin (3.4-5.0) gm/dl Globulin (2.5-4.0) gm/dl Albumin/Globulin Ratio (0.9-2) Triglycerides (0-150) mg/dl Lipase (73-393) U/L Urine Color Urine Appearance (Clear) Urine pH (4.5-7.5) Ur Specific [place] (1.000-1.030) Urine Protein (Negative) Urine Glucose (UA) (Negative) Urine Ketones (Negative) Urine Blood (Negative) Urine Nitrite (Negative) Urine Bilirubin (Negative) Urine Urobilinogen (Negative) Ur Leukocyte Esterase (Negative) COVID-19 Eval Order CovFluRsv at [facility] SARS-CoV-2 (PCR) NEGATIVE (Negative) Influenza Type A (PCR) Negative (Neg) Influenza Type B (PCR) Negative (Neg) RSV (RT-PCR) Negative (Neg) Imaging Data Attestation: I personally reviewed and interpreted this imaging study as follows: Radiologist's Impression: KUB X-Ray 07/13/20 21:59 KUB CLINICAL HISTORY: Nephrolithiasis. Low back pain. FINDINGS: 2 AP supine abdominal radiograph is are correlated with abdominal CT dated 07/05/2020. A 4 mm nonobstructing calculus projects over the lower pole of the left kidney. No calcifications are seen projecting over the right kidney or along the course of the ureters. There is no bowel obstruction. Mild/moderate fecal retention is noted in the colon. The bony structures appear intact. IMPRESSION: 1. A 4 mm nonobstructing calculus projects over the lower pole of the left kidney. 2. No additional calcifications are seen projecting over either kidney or along the course of the ureters. The left ureteral stone seen on 07/05/[address] is not apparent. Electronically signed by: Nguyễn Sun M.D. 07/13/2020 11:11 PM Renal Ultrasound 07/13/20 21:59 ULTRASOUND KIDNEYS AND BLADDER CLINICAL HISTORY: Low back pain. Fever. COMPARISON STUDY: Abdominal CT dated 07/05/2020. TECHNIQUE: Real-time, grayscale, and color flow sonography of the kidneys and bladder is performed. Images are reviewed in the transverse and longitudinal planes. The Examination is degraded by large body habitus. FINDINGS: Kidneys: The kidneys are normal in size and echotexture. The right kidney measures 12.7 x 6.2 x 5.9 cm and the left kidney measures 12.3 x 6.6 x 5.8 cm. There is no hydronephrosis. No shadowing renal calculi are identified. There is no sonographic evidence of contour deforming renal mass lesion. No perinephric fluid is identified. Bladder: The bladder is partially decompressed and grossly unremarkable. Ureteral jets were not seen. Upper abdomen: Survey images of the liver show evidence of hepatomegaly and hepatic steatosis. IMPRESSION: 1. The kidneys are normal in size and without hydronephrosis. 2. The bladder was decompressed and grossly unremarkable. 3. Hepatomegaly and hepatic steatosis. ACT 112: Negative or not required by law. Electronically signed by: Nguyễn Sun M.D. 07/13/2020 11:09 PM MDM Narrative This patient has had a recent kidney stone which she has passed but has another one within the kidney, comes in after having some mild back pain and a low-grade temperature. She looks well on exam is afebrile here. I did order urinalysis and culture. IV access was established and she was hydrated with IV normal saline. I did order ultrasound as well as a KUB. Her ultrasound shows no obstructive uropathy. Her KUB shows the 1 stone residual within the kidney and the other one is gone as she has passed this. She does have a mildly elevated white count. Her urinalysis is clear and does not suggest infection. She has no significant electrolyte or metabolic abnormalities. Lipase was surprisingly significantly elevated. She may have a pancreatitis. She does not drink alcohol and said no trauma. She is not as she has had a hysterectomy. No history of pancreatitis. I read went back and reviewed her CAT scan from a week ago and the gallbladder appeared normal and there is no other abnormalities which would help with the etiology for this. She did receive IV Toradol and IV fluids. I do think she needs to be admitted/observe for pain management and fur ther evaluation and treatment. I have consulted Dr. Jim to see her in the ER for these measures. Impression & Plan Acute pancreatitis, Back pain, History of hysterectomy, History of renal stone Discharge Plan Visit Data Chief Complaint: Back Injury/Pain Stated Complaint: BACK PAIN, FEVER, KIDNEY STONES ED Provider: Christopher Butcher Discharge Problem: Acute pancreatitis, Back pain, History of hysterectomy, History of renal stone Forms Stand Alone Forms: My [facility] [employer] Prescriptions Prescriptions: No Action gabapentin 600 mg tablet 600 mg PO HS RF: 0 atorvastatin [Lipitor] 20 mg tablet 20 mg PO CQWK RF: 0 albuterol sulfate 2.5 mg /3 mL (0.083 %) Solution For Nebulization 2.5 mg INHALATION Q4H PRN (Reason: Shortness Of Breath Or Wheezing) RF: 0 citalopram 20 mg tablet 20 mg PO DAILY RF: 0 tamsulosin 0.4 mg capsule 0.4 mg PO DAILY RF: 0 lisinopril 30 mg tablet 30 mg PO DAILY RF: 0 hydrochlorothiazide 25 mg tablet 25 mg PO DAILY RF: 0 clobetasol 0.05 % ointment 1 applic TOPICAL QAM RF: 0 ondansetron 4 mg tablet,disintegrating 4 mg translingual Q6 PRN (Reason: Nausea) RF: 0 metformin 500 mg tablet extended release 24 hr 1,000 mg PO DAILY RF: 0 Discharge Problem: Acute pancreatitis Qualifiers: Pancreatitis type: unspecified pancreatitis type Acute pancreatitis compli cation: unspecified Qualified Code(s): K85.90 - Acute pancreatitis without necrosis or infection, unspecified Back pain Qualifiers: Back pain location: low back pain Chronicity: acute Back pain laterality: midline Sciatica presence: without sciatica Qualified Code(s): M54.5 - Low back pain
[2020-07-13 22:20] LABS: Basophils # (auto) 0.02 K/uL (0-0.2); Basophils % (auto) 0.1 %; Eosinophils # (auto) 0.19 K/uL (0-0.5); Eosinophils % (auto) 1.4 %; Hemoglobin 13.6 g/dL (12.0-16.0); Immature Granulocytes # (auto) 0.04 K/uL (0.00-0.02); Immature Granulocytes % (auto) 0.3 %; Lymphocytes # (auto) 2.29 K/uL (1.2-3.4); Lymphocytes % (auto) 16.6 %; Mean Corpuscular Hemoglobin 28.6 pg (25-34); Mean Corpuscular Hgb Conc 33.2 g/dL (32-36); Mean Corpuscular Volume 86.1 fL (80-100); Mean Platelet Volume 10.6 fL (7.4-10.4); Monocytes # (auto) 0.99 K/uL (0.11-0.59); Monocytes % (auto) 7.2 %; Neutrophils # (auto) 10.26 K/uL (1.4-6.5); Neutrophils % (auto) 74.4 %; Platelet Count 314 K/uL (130-400); RDW Coefficient of Variation 13.3 % (11.5-14.5); Red Blood Count 4.76 M/uL (4.2-5.4); White Blood Count 13.79 K/uL (4.8-10.8)
[2020-07-13 22:36] LABS: Appearance Urine Clear (Clear); Bilirubin Urine Negative (Negative); Blood Urine Negative (Negative); Color Urine Yellow; Glucose Urine UA Negative (Negative); Ketones Urine Negative (Negative); Leukocyte Esterase Urine Negative (Negative); Nitrite Urine Negative (Negative); Protein Urine Negative (Negative); Specific Gravity Urine 1.021 (1.000-1.030); Urobilinogen Urine Negative (Negative)
[2020-07-13 22:38] LABS: Albumin Level 3.6 gm/dl (3.4-5.0); BUN Creatinine Ratio 24.2 (10-20); Calcium 9.1 mg/dl (8.5-10.1); Creatinine Clr Calc Pharmacy 144.5 ml/min; Est GFR (African American) 114.8; Potassium 3.5 mmol/L (3.5-5.1)
[2020-07-13 22:41] LABS: Bilirubin,Total 0.4 mg/dl (0.2-1); Globulin 3.7 gm/dl (2.5-4.0); Total Protein 7.3 gm/dl (6.4-8.2)
[2020-07-13] MEDS ORDERED: KETOROLAC TROMETHAMINE 15 MG/ML VIAL IV ONE (23:11)
--- NOTE | 2020-07-13 23:11 | Ultrasound Report ---
ULTRASOUND KIDNEYS AND BLADDER CLINICAL HISTORY: Low back pain. Fever. COMPARISON STUDY: Abdominal CT dated 07/05/2020. TECHNIQUE: Real-time, grayscale, and color flow sonography of the kidneys and bladder is performed. I mages are reviewed in the transverse and longitudinal planes. The Examination is degraded by large ervin dy habitus. FINDINGS: Kidneys: The kidneys are normal in size and echotexture. The right kidney measures 12.7 x 6.2 x 5.9 c m and the left kidney measures 12.3 x 6.6 x 5.8 cm. There is no hydronephrosis. No shadowing renal c alculi are identified. There is no sonographic evidence of contour deforming renal mass lesion. No pe rinephric fluid is identified. Bladder: The bladder is partially decompressed and grossly unremarkable. Ureteral jets were not seen. Upper abdomen: Survey images of the liver show evidence of hepatomegaly and hepatic steatosis. IMPRESSION: 1. The kidneys are normal in size and without hydronephrosis. 2. The bladder was decompressed and grossly unremarkable. 3. Hepatomegaly and hepatic steatosis. ACT 112: Negative or not required by law. Electronically signed by: Nguynễ Sun M.D. 07/13/2020 11:09 PM
--- NOTE | 2020-07-13 23:12 | XRay Report ---
KUB CLINICAL HISTORY: Nephrolithiasis. Low back pain. FINDINGS: 2 AP supine abdominal radiograph is are correlated with abdominal CT dated 07/05/2020. A 4 m m nonobstructing calculus projects over the lower pole of the left kidney. No calcifications are seen projecting over the right kidney or along the course of the ureters. There is no bowel obstruction. Mild/moderate fecal retention is noted in the colon. The bony structures appear intact. IMPRESSION: 1. A 4 mm nonobstructing calculus projects over the lower pole of the left kidney. 2. No additional calcifications are seen projecting over either kidney or along the course of the ure ters. The left ureteral stone seen on 07/05/[address] is not apparent. Electronically signed by: Nguyễn Sun M.D. 07/13/2020 11:11 PM
[2020-07-13] MEDS ORDERED: LACTATED RINGER'S 1,000 ML IV ONE (23:59)
[2020-07-13] MEDS ORDERED: oxyCODONE HCL IR 5 MG TAB (IMMEDIATE RELEASE) PO PRN (23:59)
[2020-07-14 00:51] LABS: Magnesium 2.1 mg/dl (1.8-2.4)
[2020-07-14 00:58] LABS: Influenza A virus by PCR Negative (Neg); Influenza B virus by PCR Negative (Neg); RSV by PCR Negative (Neg); SARS CoV2 RNA(COVID-19) InHosp NEGATIVE (Negative)
--- NOTE | 2020-07-14 01:48 | History & Physical Report ---
Date of Service July 14, 2020 Assessment & Plan (1) Acute pancreatitis: Unclear etiology for now hypertension, slightly elevated secondary discomfort DM2 diet-controlled, reasonable control as of recent hemoglobin A1c of 7.21 Jul 2019 metabolic syndrome as per records Recent bout of renal colic status post spontaneous stone passage GMF Bowel rest IVF, analgesia GI consult Re: Pancreatitis unclear etiology Basal insulin, ISS BG goal [id number], carb count coverage when patient diet adva nced, update hemoglobin A1c DVT prophylaxis Lovenox subcu Full code Text document was generated using [employer] voice recognition software. It may contain grammatical or spelling errors. Kindly contact undersigned for clarification of any documentation item in question. History of Present Illness Chief Complaint: Mid back pain Primary Care Provider: Daphne Mejia, History obtained from patient, family, and records. Medical history significant for hypertension, DM2 diet-controlled, metabolic syndrome as per records, LUIS on CPAP, RLS, urolithiasis. Last confinement 2017 for shortness of breath. ACS ruled out. Patient seen at the ER last week for left flank pain symptoms reminiscent of kidney stone pain. CAT scan of the abdomen pelvis showed 5 mm obstructing calculus left proximal ureter causing mild left hydronephrosis. Additional 4 mm nonobstructing calculus left lower pole. Mild left-sided perinephric stranding. Hepatomegaly and hepatic steatosis. Patient discharged home on Flomax and narcotic medication as needed. Spontaneous passage of 1 stone at home with resolution of symptoms as per patient. Yesterday afternoon, patient noted achy mid back pain different from kidney stone pain without nausea, emesis, fever, chills. No actual abdominal pain. No leg weakness. Lunch was not fatty as per patient. No prior episodes. No chest pain, no shortness of breath. No recent EtOH intake. Patient brought by to the ER. Medical History as above Surgical History : Breast lesion excision, dental surgery, foot/toe surgery for Parker's neuroma, hysteroscopy/endometrial ablation, STEPHANIE Family History : Kidney stones, breast cancer, ovarian cancer, heart disease Personal/Social history : Non-smoker, occasional EtOH intake, [employer] business Allergies Allergy/AdvReac Type Severity Reaction Status Date / Time LATEX TAPE AdvReac Rash Uncoded 07/13/20 22:29 Home Medications Medication Instructions Recorded Confirmed Type albuterol sulfate 2.5 mg INHALATION Q4H PRN 07/13/20 07/13/20 History atorvastatin [Lipitor] 20 mg PO CQWK 07/13/20 07/13/20 History citalopram 20 mg PO DAILY 07/13/20 07/13/20 History clobetasol 1 applic TOPICAL QAM 07/13/20 07/13/20 History gabapentin 600 mg PO HS 07/13/20 07/13/20 History hydrochlorothiazide 25 mg PO DAILY 07/13/20 07/13/20 History lisinopril 30 mg PO DAILY 07/13/20 07/13/20 History metformin 1,000 mg PO DAILY 07/13/20 07/13/20 History ondansetron 4 mg TRANSLINGUAL Q6 PRN 07/13/20 07/13/20 History tamsulosin 0.4 mg PO DAILY 07/13/20 07/13/20 History Past Med/Surg History Medical History Dyslipidemia H/O renal calculi HTN (hypertension) Metabolic syndrome Mood disorder LUIS on CPAP Surgical History S/P hysterectomy Social History Smoking Status: Never smoker Hx Alcohol Use: Yes Alcohol type: wine Hx Substance Use: No Preferred Language: Chadian Communication Ability: Effective Pricing Strategist Required: No Beliefs That Will Affect Care: None Current Living Situation: Spouse Other Information That Helps Us Care for You: No Feels Safe at Home: Yes Safety Concerns: Feels Safe At This Time Assistive Devices: CPAP and Glasses Review of Systems Review of Systems: As per HPI, all 10 systems reviewed, all other ROS negative Physical Exam Physical Exam: GENERAL: Comfortable, morbidly obese, pleasant, no respiratory distress SKIN: Normal color, warm HEENT: Bespectacled, [place] palpebral conjunctivae, no ptosis, moist buccal mucosa NECK : Supple, short neck, no tenderness CHEST : CTA, no tenderness HEART : RRR, no obvious murmurs ABDOMEN: Some distention, nontender EXTREMITIES : Minimal LE swelling, no LE tenderness, no other conspicuous deformities noted NEUROLOGIC : Coherent, no facial asymmetry, no other gross focality Results & Data Results & Data ([facility]) Vital Signs (Past 12 Hours) Vital Signs Temp Pulse Pulse Resp BP BP Pulse Ox 07/14/20 01:16 74 18 135/70 96 07/13/20 23:24 80 18 147/76 H 96 07/13/20 21:43 36.7 C 83 18 192/92 H 96 Laboratory Results Laboratory Results WBC 13.79 K/uL (4.8-10.8) H 07/13/20 22:06 RBC 4.76 M/uL (4.2-5.4) 07/13/20 22:06 Hgb 13.6 g/dL (12.0-16.0) 07/13/20 22:06 Hct 41.0 % (37-47) 07/13/20 22:06 MCV 86.1 fL (80-100) 07/13/20 22:06 MCH 28.6 pg (25-34) 07/13/20 22:06 MCHC 33.2 g/dL (32-36) 07/13/20 22:06 RDW Std Deviation 42.0 fL (36.4-46.3) 07/13/20 22:06 RDW Coeff of Hugo 13.3 % (11.5-14.5) 07/13/20 22:06 Plt Count 314 K/uL (130-400) 07/13/20 22:06 MPV 10.6 fL (7.4-10.4) H 07/13/20 22:06 Immature Gran % (Auto) 0.3 % 07/13/20 22:06 Neut % (Auto) 74.4 % 07/13/20 22:06 Lymph % (Auto) 16.6 % 07/13/20 22:06 [place] % (Auto) 7.2 % 07/13/20 22:06 Eos % (Auto) 1.4 % 07/13/20 22:06 Baso % (Auto) 0.1 % 07/13/20 22:06 Neut # (Auto) 10.26 K/uL (1.4-6.5) H 07/13/20 22:06 Lymph # (Auto) 2.29 K/uL (1.2-3.4) 07/13/20 22:06 [place] # (Auto) 0.99 K/uL (0.11-0.59) H 07/13/20 22:06 Eos # (Auto) 0.19 K/uL (0-0.5) 07/13/20 22:06 Baso # (Auto) 0.02 K/uL (0-0.2) 07/13/20 22:06 Immature Gran # (Auto) 0.04 K/uL (0.00-0.02) H 07/13/20 22:06 Sodium 138 mmol/L (136-145) 07/13/20 22:06 Potassium 3.5 mmol/L (3.5-5.1) 07/13/20 22:06 Chloride 104 mmol/L (98-107) 07/13/20 22:06 Carbon Dioxide 30 mmol/L (21-32) 07/13/20 22:06 Anion Gap 4.0 (3-11) 07/13/20 22:06 BUN 17 mg/dl (7-18) 07/13/20 22:06 Creatinine 0.72 mg/dl (0.6-1.2) 07/13/20 22:06 Est Cr Clr Drug Dosing 144.5 ml/min 07/13/20 22:06 Est GFR ( Amer) 114.8 07/13/20 22:06 Est GFR (Non-Af Amer) 99.0 07/13/20 22:06 BUN/Creatinine Ratio 24.2 (10-20) H 07/13/20 22:06 Glucose 139 mg/dl (70-99) H 07/13/20 22:06 Calcium 9.1 mg/dl (8.5-10.1) 07/13/20 22:06 Magnesium 2.1 mg/dl (1.8-2.4) 07/13/20 22:06 Total Bilirubin 0.4 mg/dl (0.2-1) 07/13/20 22:06 AST 12 U/L (15-37) L 07/13/20 22:06 ALT 29 U/L (12-78) 07/13/20 22:06 Alkaline Phosphatase 83 U/L (45-117) 07/13/20 22:06 Total Protein 7.3 gm/dl (6.4-8.2) 07/13/20 22:06 Albumin 3.6 gm/dl (3.4-5.0) 07/13/20 22:06 Globulin 3.7 gm/dl (2.5-4.0) 07/13/20 22:06 Albumin/Globulin Ratio 1.0 (0.9-2) 07/13/20 22:06 Triglycerides 217 mg/dl (0-150) H 07/13/20 22:06 Lipase 1864 U/L (73-393) H 07/13/20 22:06 Urine Color Yellow 07/13/20 22:00 Urine Appearance Clear (Clear) 07/13/20 22:00 Urine pH 7.0 (4.5-7.5) 07/13/20 22:00 Ur Specific [place] 1.021 (1.000-1.030) 07/13/20 22:00 Urine Protein Negative (Negative) 07/13/20 22:00 Urine Glucose (UA) Negative (Negative) 07/13/20 22:00 Urine Ketones Negative (Negative) 07/13/20 22:00 Urine Blood Negative (Negative) 07/13/20 22:00 Urine Nitrite Negative (Negative) 07/13/20 22:00 Urine Bilirubin Negative (Negative) 07/13/20 22:00 Urine Urobilinogen Negative (Negative) 07/13/20 22:00 Ur Leukocyte Esterase Negative (Negative) 07/13/20 22:00 COVID-19 Eval Order CovFluRsv at [facility] 07/13/20 23:40 SARS-CoV-2 (PCR) NEGATIVE (Negative) 07/13/20 23:40 Influenza Type A (PCR) Negative (Neg) 07/13/20 23:40 Influenza Type B (PCR) Negative (Neg) 07/13/20 23:40 RSV (RT-PCR) Negative (Neg) 07/13/20 23:40 Impressions KUB X-Ray 07/13/20 21:59 KUB CLINICAL HISTORY: Nephrolithiasis. Low back pain. FINDINGS: 2 AP supine abdominal radiograph is are correlated with abdominal CT dated 07/05/2020. A 4 mm nonobstructing calculus projects over the lower pole of the left kidney. No calcifications are seen projecting over the right kidney or along the course of the ureters. There is no bowel obstruction. Mild/moderate fecal retention is noted in the colon. The bony structures appear intact. IMPRESSION: 1. A 4 mm nonobstructing calculus projects over the lower pole of the left kidney. 2. No additional calcifications are seen projecting over either kidney or along the course of the ureters. The left ureteral stone seen on 07/05/[address] is not apparent. Electronically signed by: Nguyễn Sun M.D. 07/13/2020 11:11 PM Renal Ultrasound 07/13/20 21:59 ULTRASOUND KIDNEYS AND BLADDER CLINICAL HISTORY: Low back pain. Fever. COMPARISON STUDY: Abdominal CT dated 07/05/2020. TECHNIQUE: Real-time, grayscale, and color flow sonography of the kidneys and bladder is performed. Images are reviewed in the transverse and longitudinal planes. The Examination is degraded by large body habitus. FINDINGS: Kidneys: The kidneys are normal in size and echotexture. The right kidney measures 12.7 x 6.2 x 5.9 cm and the left kidney measures 12.3 x 6.6 x 5.8 cm. There is no hydronephrosis. No shadowing renal calculi are identified. There is no sonographic evidence of contour deforming renal mass lesion. No perinephric fluid is identified. Bladder: The bladder is partially decompressed and grossly unremarkable. Ureteral jets were not seen. Upper abdomen: Survey images of the liver show evidence of hepatomegaly and hepatic steatosis. IMPRESSION: 1. The kidneys are normal in size and without hydronephrosis. 2. The bladder was decompressed and grossly unremarkable. 3. Hepatomegaly and hepatic steatosis. ACT 112: Negative or not required by law. Electronically signed by: Nguyễn Sun M.D. 07/13/2020 11:09 PM Diagnostic Findings Gallbladder ultrasound initial read: Hepatomegaly and hepatic steatosis. No cholelithiasis, gallbladder wall thickening or common bile duct dilatation. Sonographic Newman sign is negative. No right hydronephrosis. Limited views of the pancreas. (1) Acute pancreatitis Acute pancreatitis complication: unspecified Pancreatitis type: unspecified pancreatitis type Qualified Code(s): K85.90 - Acute pancreatitis without necrosis or infection, unspecified
[2020-07-14] MEDS ORDERED: GLUCOSE 10 TABS/TUBE PO PRN (02:52)
[2020-07-14] MEDS ORDERED: PROMETHAZINE HCL 12.5 MG in SODIUM CHLORIDE 0.9% 50 ML IV PRN (02:52)
[2020-07-14] MEDS ORDERED: ACETAMINOPHEN 325 MG TAB PO PRN (02:52)
[2020-07-14] MEDS ORDERED: GLUCAGON FOR INJ 1 MG VIAL SQ PRN (02:52)
[2020-07-14] MEDS ORDERED: DEXTROSE 50% 50 ML SYRINGE IV PRN (02:52)
[2020-07-14] MEDS ORDERED: GLUCOSE 40% GEL 15 GM TUBE PO PRN (02:52)
[2020-07-14] MEDS ORDERED: CARBOHYDRATES FOR HYPOGLYCEMIA PO PRN (02:52)
[2020-07-14] MEDS ORDERED: MoRPHine SULFATE 4 MG/ML 1 ML CARP\\VIAL IV PRN (02:52)
[2020-07-14] MEDS ORDERED: INSULIN ASPART 100 UNITS/ML 3 ML PEN SC SCH ×2 (04:00→12:00)
[2020-07-14] MEDS ORDERED: Nursing to Pharmacy Communication SCH ×2 (05:00→09:15)
[2020-07-14] MEDS: LACTATED RINGER'S 1,000 ML IV SCH ×4 (05:02→20:11)
[2020-07-14 06:02] LABS: Basophils # (auto) 0.01 K/uL (0-0.2); Basophils % (auto) 0.1 %; Eosinophils # (auto) 0.17 K/uL (0-0.5); Eosinophils % (auto) 1.7 %; Hematocrit (blood only) 36.8 % (37-47); Hemoglobin 12.4 g/dL (12.0-16.0); Immature Granulocytes # (auto) 0.02 K/uL (0.00-0.02); Immature Granulocytes % (auto) 0.2 %; Lymphocytes # (auto) 2.38 K/uL (1.2-3.4); Lymphocytes % (auto) 23.3 %; Mean Corpuscular Hgb Conc 33.7 g/dL (32-36); Mean Platelet Volume 10.7 fL (7.4-10.4); Monocytes # (auto) 0.79 K/uL (0.11-0.59); Monocytes % (auto) 7.7 %; Neutrophils # (auto) 6.84 K/uL (1.4-6.5); Platelet Count 284 K/uL (130-400); RDW Coefficient of Variation 13.5 % (11.5-14.5); RDW Standard Deviation 42.4 fL (36.4-46.3); Red Blood Count 4.28 M/uL (4.2-5.4); White Blood Count 10.21 K/uL (4.8-10.8)
[2020-07-14 06:36] LABS: Albumin Globulin Ratio 0.8 (0.9-2); BUN Creatinine Ratio 24.9 (10-20); Bilirubin,Total 0.8 mg/dl (0.2-1); Calcium 8.5 mg/dl (8.5-10.1); Creatinine Clr Calc Pharmacy 159.8 ml/min; Est GFR (African American) 121.7; Globulin 3.7 gm/dl (2.5-4.0); Potassium 3.5 mmol/L (3.5-5.1); Total Protein 6.7 gm/dl (6.4-8.2)
[2020-07-14 06:48] LABS: Thyroid Stimulating Hormone 2.15 uIu/ml (0.300-4.500)
[2020-07-14] MEDS: lisinopril 10 MG TAB PO SCH (08:12)
[2020-07-14] MEDS: ENOXAPARIN INJ 40 MG/0.4 ML SYR SQ SCH (08:12)
[2020-07-14] MEDS: CITALOPRAM 20 MG TAB PO SCH (08:12)
--- NOTE | 2020-07-14 08:14 | Ultrasound Report ---
US gallbladder CLINICAL HISTORY: abn lipase/back pain COMPARISON STUDY: CT of the abdomen and pelvis July 05, 2020. FINDINGS: Hepatic echogenicity is increased. No hepatic lesions are identified. Liver is mildly enlar ged. There is no biliary ductal dilatation. The common bile duct measures 3 mm in caliber. The pancre atic body is normal. The head and tail are partially obscured. The gallbladder is normal. There are n o gallstones. There is no right hydronephrosis. IMPRESSION: 1. Hepatic steatosis. 2. Exam compromised by suboptimal penetration but no gallstones identified. No biliary ductal dilatat ion. 3. Partially obscured pancreas. No peripancreatic fluid collection. ACT 112: Negative or not required by law. Electronically signed by: Alfonzo Bernard M.D. 07/14/2020 8:13 AM
[2020-07-14] MEDS: TAMSULOSIN HCL 0.4 MG CAP PO SCH (10:56)
--- NOTE | 2020-07-14 11:42 | Hospitalist Progress Note ---
Date of Service July 14, 2020 Assessment & Plan (1) Acute pancreatitis: Present on admission with abdominal pain and back pain Lipase on admission 1864 Gallbladder u/s showed no gallstones identified. No biliary ductal dilatation. Continue IVF Starting on clear liquid diet Denies any painn currently Gastro on board Might need outpatient EUS Clinically stable Renal calculi Pt said that she passed a stone at home Renal u/s showed kidneys are normal in size and without hydronephrosis. bladder was decompressed and grossly unremarkable. KUB showed a 4 mm nonobstructing calculus projects over the lower pole of the left kidney. Asymptomatic Continue flomax Diabetes type 2 Most recent Hba1c 7.1 Continue to hold PO metformin during the hospiatl course Continue insulin sliding scale Continue monitor BS HTN BP elevated Continue Lisinopril Continue monitor BP Morbid Obesity BMI 53.4 Counseling on weight loss DVT px on Lovenox Code status Full code Admission and Anticipated Discharge Date Admission Date: July 14, 2020 Subjective Pt was seen and examined for follow up of acute pancreatitis Lying in bed with no distress resting comfortable Pt said that she feels fine She said that she does not have any pain Starting on clear liquid diet and tolerated well Denies any chest pain, palpitation, dizziness and SOB Review of Systems Review of Systems: All systems reviewed & are unremarkable except as noted in Subjective Physical Exam Physical Exam: General- No acute distress Head- atraumatic Eyes- PERRL, EOMI, ENT- oropharynx clear Neck- supple, no JVD Lungs- clear to auscultation Heart- regular rhythm; no murmur Abdomen- normal bowel sounds, soft, nontender Extremities- no calf tenderness Neuro- alert, oriented x 3; PERRL, EOMI; no facial palsy; no dysarthria Skin- warm & dry Results & Data Results & Data ([facility]) Vital Signs (Past 12 Hours) Vital Signs Temp Pulse Resp BP Pulse Ox 07/14/20 07:42 37.5 C 71 18 163/83 H 95 07/14/20 02:50 37.1 C 77 16 147/85 H 94 07/14/20 01:16 74 18 135/70 96 (1) Acute pancreatitis Acute pancreatitis complication: unspecified Pancreatitis type: unspecified pancreatitis type Qualified Code(s): K85.90 - Acute pancreatitis without necrosis or infection, unspecified
[2020-07-14] MEDS: INSULIN ASPART 100 UNITS/ML 3 ML PEN SC SCH ×3 (13:41→20:28)
--- NOTE | 2020-07-14 14:27 | Gastrointestinal Consultation ---
Date of Consultation July 14, 2020 Assessment & Plan (1) Acute pancreatitis: mild, resolving. s/p ivfs. Recs: continue ivfs advance diet to low residue diet today, if tolerates can advance as tolerated tomorrow morning pain control prn she is 50 and we discussed screening colonoscopy, which she is due for and will schedule as an outpatient Thank you for allowing me to participate in the care of this patient History of Present Illness Attending Physician: Elie Poe MD 50 yo female with hx metabolic syndrome here with pancreatitis. Was recently in ER for kidney stones and then returned with back pains yesterday, lipase noted to be above 1000. Currently improved without any pain or nausea. tolerating clear liquid diet. imaging unremarkable including US gallbladder. No new CT however since pancreatitis onset/returning to hospital. labs reviewed. Allergies Allergy/AdvReac Type Severity Reaction Status Date / Time LATEX TAPE AdvReac Rash Uncoded 07/13/20 22:29 Home Medications Medication Instructions Recorded Confirmed Type albuterol sulfate 2.5 mg INHALATION Q4H PRN 07/13/20 07/13/20 History atorvastatin [Lipitor] 20 mg PO CQWK 07/13/20 07/13/20 History citalopram 20 mg PO DAILY 07/13/20 07/13/20 History clobetasol 1 applic TOPICAL QAM 07/13/20 07/13/20 History gabapentin 600 mg PO HS 07/13/20 07/13/20 History hydrochlorothiazide 25 mg PO DAILY 07/13/20 07/13/20 History lisinopril 30 mg PO DAILY 07/13/20 07/13/20 History metformin 1,000 mg PO DAILY 07/13/20 07/13/20 History ondansetron 4 mg TRANSLINGUAL Q6 PRN 07/13/20 07/13/20 History tamsulosin 0.4 mg PO DAILY 07/13/20 07/13/20 History Patient History Medical History Dyslipidemia H/O renal calculi HTN (hypertension) Metabolic syndrome Mood disorder LUIS on CPAP Surgical History S/P hysterectomy Social History Smoking Status: Never smoker Hx Alcohol Use: Yes Alcohol type: wine Hx Substance Use: No Preferred Language: Occitan Communication Ability: Effective Slide Forming Machine Tender Required: No Beliefs That Will Affect Care: None Current Living Situation: Spouse Other Information That Helps Us Care for You: No Feels Safe at Home: Yes Safety Concerns: Feels Safe At This Time Assistive Devices: CPAP and Glasses Review of Systems Constitutional: no fever, no chills and no weight loss Eyes: as per Subjective / HPI Ear, Nose, Mouth, Throat: as per Subjective / HPI Respiratory: no dyspnea and no dyspnea on exertion Cardiovascular: no chest pain and no palpitations Gastrointestinal: as per Subjective / HPI Musculoskeletal: no joint pain and no swelling Integumentary: no rash and no lesions Neurologic: no numbness and no paresthesia Psychiatric: no depression and no anxiety Endocrine: no fatigue Hematologic / Lymphatic: no easy bleeding and no easy bruising Physical Exam Constitutional: WD/WN, vitals as above Eyes: EOM intact bilaterally Neck: normal visual inspection Respiratory: normal respiratory effort, lungs clear to auscultation Cardiovascular: RRR, no murmur, no edema Gastrointestinal (Abdomen): Inspection/Auscultation: abdomen normal to inspe ction; abdomen not distended Percussion/Palpation: abdomen soft; abdomen nontender and no hepatosplenomegaly Musculoskeletal: Extremities: no cyanosis Gait: normal gait Skin: no rashes, warm and dry Neurologic: moves all extremities Psychiatric: A+Ox3, euthymic affect Results & Data ([facility]) Vital Signs (Past 12 Hours) Vital Signs Temp Pulse Resp BP Pulse Ox 07/14/20 07:42 37.5 C 71 18 163/83 H 95 07/14/20 02:50 37.1 C 77 16 147/85 H 94 PG Care Time/CCT Total # of Minutes Spent Total Time Spent with Patient: Total time spent is greater than 50% in coordination of care (as documented) at patient's floor/unit and/or counseling patient: Coding Level of Care Code 96606 Inpt Consult Level 4 Diagnoses Acute pancreatitis K85.90 Acute pancreatitis complication: unspecified Pancreatitis type: unspecified pancreatitis type (1) Acute pancreatitis Acute pancreatitis complication: unspecified Pancreatitis type: unspecified pancreatitis type Qualified Code(s): K85.90 - Acute pancreatitis without necrosis or infection, unspecified
[2020-07-14] MEDS ORDERED: GABAPENTIN 600 MG TAB PO SCH (21:00)
[2020-07-15] MEDS: LACTATED RINGER'S 1,000 ML IV SCH (01:34)
[2020-07-15 06:13] LABS: Estimated Average Glucose 148 mg/dl; Hemoglobin A1C 6.8 % (4.5-5.6)
[2020-07-15] MEDS: CITALOPRAM 20 MG TAB PO SCH (08:24)
[2020-07-15] MEDS: lisinopril 10 MG TAB PO SCH (08:25)
[2020-07-15] MEDS: ENOXAPARIN INJ 40 MG/0.4 ML SYR SQ SCH (08:25)
[2020-07-15] MEDS: TAMSULOSIN HCL 0.4 MG CAP PO SCH (08:25)
[2020-07-15] MEDS: INSULIN ASPART 100 UNITS/ML 3 ML PEN SC SCH ×2 (08:29→12:16)
--- NOTE | 2020-07-15 08:38 | Gastroenterology Progress Note ---
Date of Service July 15, 2020 Assessment & Plan (1) Acute pancreatitis: Pt is a 50 y/o female admitted for acute pancreatitis. Last ETOH intake on New years. TG 200s. + gallbladder w/o cholelithiasis or biliary ductal dilation on u/s. LFTs was normal.No new oral meds or family hx of pancreatic ca, autoimmune dz. - Low fat diet - No contraindication for DC home from GI standpoint - F/U outpt EUS eval to r/o biliary sludge, microlithiasis, pancreatic cysts in about 4-6 week's time Admission and Anticipated Discharge Date Admission Date: July 14, 2020 Supervising Physician Co-Signing Physician Notes I have seen and examined the patient and discussed the management with WILLIAM Altman. No acute complaints of pain- tolerating diet and moving bowels. Pe - obese white fm in nad, abd obese soft Labs reviewed Outpt EUS, ok to dc home from a Gi perspective. Subjective Pt denies any acute events overnight. Denies abd pain, n/v. Is passing flatus and last BM yesterday. Tolerated solid meals for dinner last evening Review of Systems Review of Systems: All systems reviewed & are unremarkable except as noted in HPI & below Physical Exam Constitutional: WD/WN, vitals as above well groomed, cooperative and comfortable Eyes: PERRL, conjunctivae normal, anicteric sclerae ENMT: external ear and nose normal, oropharynx normal Respiratory: normal respiratory effort, lungs clear to auscultation Cardiovascular: RRR, no murmur, no edema Gastrointestinal (Abdomen): normal bowel sounds, soft, nontender, no hepatosplenomegaly Skin: no rashes, warm and dry no jaundice Psychiatric: A+Ox3, euthymic affect Lymphatic: no lymphedema Results & Data ([facility]) Vital Signs (Past 12 Hours) Vital Signs Temp Pulse Resp BP Pulse Ox 07/15/20 07:41 37.1 C 81 17 159/80 H 94 07/14/20 22:09 36.6 C 77 18 162/79 H 93 (1) Acute pancreatitis Acute pancreatitis complication: unspecified Pancreatitis type: unspecified pancreatitis type Qualified Code(s): K85.90 - Acute pancreatitis without necrosis or infection, unspecified
--- NOTE | 2020-07-15 12:24 | Hospitalist Progress Note ---
Date of Service July 15, 2020 Assessment & Plan (1) Acute pancreatitis: Present on admission with abdominal pain and back pain Lipase on admission 1864 Gallbladder u/s showed no gallstones identified. No biliary ductal dilatation. Tolerated low fat diet Denies any pain currently Gastro on board Follow up with gastro outpatient for EUS eval to r/o biliary sludge, microlithiasis, pancreatic cysts in about 4-6 week's time Ok from Gastro standpoint to discharge home Renal calculi Pt said that she passed a stone at home Renal u/s showed kidneys are normal in size and without hydronephrosis. bladder was decompressed and grossly unremarkable. KUB showed a 4 mm nonobstructing calculus projects over the lower pole of the left kidney. Asymptomatic Continue flomax Diabetes type 2 Most recent Hba1c 7.1 Continue to hold PO metformin during the hospital course Continue insulin sliding scale Continue monitor BS HTN BP elevated Continue Lisinopril Continue monitor BP Morbid Obesity BMI 53.4 Counseling on weight loss DVT px on Lovenox Code status Full code Disposition Discharge home today Admission and Anticipated Discharge Date Admission Date: July 14, 2020 Subjective Pt was seen and examined for follow up of pancreatitis Sitting in chair with no distress Pt said that she feels fine She said that she has no abdominal pain Denies any chest pain, palpitation, dizziness and fever Review of Systems Review of Systems: All systems reviewed & are unremarkable except as noted in Subjective Physical Exam Physical Exam: General- No acute distress Head- atraumatic Eyes- PERRL, EOMI, ENT- oropharynx clear Neck- supple, no JVD Lungs- clear to auscultation Heart- regular rhythm; no murmur Abdomen- normal bowel sounds, soft, nontender Extremities- no calf tenderness Neuro- alert, oriented x 3; PERRL, EOMI; no facial palsy; no dysarthria Skin- warm & dry Results & Data Results & Data ([facility]) Vital Signs (Past 12 Hours) Vital Signs Temp Pulse Resp BP Pulse Ox 07/15/20 07:41 37.1 C 81 17 159/80 H 94 (1) Acute pancreatitis Acute pancreatitis complication: unspecified Pancreatitis type: unspecified pancreatitis type Qualified Code(s): K85.90 - Acute pancreatitis without necrosis or infection, unspecified
--- NOTE | 2020-07-23 | Discharge Summary ---
Date of Service July 15, 2020 Admission HPI Per Admitting Provider History obtained from patient, family, and records. Medical history significant for hypertension, DM2 diet-controlled, metabolic syndrome as per records, LUIS on CPAP, RLS, urolithiasis. Last confinement 2017 for shortness of breath. ACS ruled out. Patient seen at the ER last week for left flank pain symptoms reminiscent of kidney stone pain. CAT scan of the abdomen pelvis showed 5 mm obstructing calculus left proximal ureter causing mild left hydronephrosis. Additional 4 mm nonobstructing calculus left lower pole. Mild left-sided perinephric stranding. Hepatomegaly and hepatic steatosis. Patient discharged home on Flomax and narcotic medication as needed. Spontaneous passage of 1 stone at home with resolution of symptoms as per patient. Yesterday afternoon, patient noted achy mid back pain different from kidney stone pain without nausea, emesis, fever, chills. No actual abdominal pain. No leg weakness. Lunch was not fatty as per patient. No prior episodes. No chest pain, no shortness of breath. No recent EtOH intake. Patient brought by to the ER. Medical History as above Surgical History : Breast lesion excision, dental surgery, foot/toe surgery for Parker's neuroma, hysteroscopy/endometrial ablation, STEPHANIE Family History : Kidney stones, breast cancer, ovarian cancer, heart disease Personal/Social history : Non-smoker, occasional EtOH intake, [employer] Admission Exam Per Admitting Provider GENERAL: Comfortable, morbidly obese, pleasant, no respiratory distress SKIN: Normal color, warm HEENT: Bespectacled, [place] palpebral conjunctivae, no ptosis, moist buccal mucosa NECK : Supple, short neck, no tenderness CHEST : CTA, no tenderness HEART : RRR, no obvious murmurs ABDOMEN: Some distention, nontender EXTREMITIES : Minimal LE swelling, no LE tenderness, no other conspicuous deformities noted NEUROLOGIC : Coherent, no facial asymmetry, no other gross focality Principal Diagnosis Acute pancreatitis: Renal calculi Diabetes type 2 Hypertension Morbid Obesity Discharge Exam General- No acute distress Head- atraumatic Eyes- PERRL, EOMI, ENT- oropharynx clear Neck- supple, no JVD Lungs- clear to auscultation Heart- regular rhythm; no murmur Abdomen- normal bowel sounds, soft, nontender Extremities- no calf tenderness Neuro- alert, oriented x 3; PERRL, EOMI; no facial palsy; no dysarthria Skin- warm & dry Discharge Data Allergies Allergy/AdvReac Type Severity Reaction Status Date / Time LATEX TAPE AdvReac Rash Uncoded 07/13/20 22:29 Consultations 07/13/20 23:43 ED Decision to Admit Stat 07/14/20 02:52 Consult Gastroenterology Routine Ordered Studies 07/13/20 21:59 US renal/blad retro comp Stat 07/14/20 01:48 US gallbladder Urgent US gallbladder CLINICAL HISTORY: abn lipase/back pain COMPARISON STUDY: CT of the abdomen and pelvis July 05, 2020. FINDINGS: Hepatic echogenicity is increased. No hepatic lesions are identified. Liver is mildly enlarged. There is no biliary ductal dilatation. The common bile duct measures 3 mm in caliber. The pancreatic body is normal. The head and tail are partially obscured. The gallbladder is normal. There are no gallstones. There is no right hydronephrosis. IMPRESSION: 1. Hepatic steatosis. 2. Exam compromised by suboptimal penetration but no gallstones identified. No biliary ductal dilatation. 3. Partially obscured pancreas. No peripancreatic fluid collection. ACT 112: Negative or not required by law. Electronically signed by: Alfonzo Bernard M.D. 07/14/2020 8:13 AM Dictated: 07/14/20 0811Transcribed: 07/14/20 0811 ULTRASOUND KIDNEYS AND BLADDER CLINICAL HISTORY: Low back pain. Fever. COMPARISON STUDY: Abdominal CT dated 07/05/2020. TECHNIQUE: Real-time, grayscale, and color flow sonography of the kidneys and bladder is performed. Images are reviewed in the transverse and longitudinal planes. The Examination is degraded by large body habitus. FINDINGS: Kidneys: The kidneys are normal in size and echotexture. The right kidney measures 12.7 x 6.2 x 5.9 cm and the left kidney measures 12.3 x 6.6 x 5.8 cm. There is no hydronephrosis. No shadowing renal calculi are identified. There is no sonographic evidence of contour deforming renal mass lesion. No perinephric fluid is identified. Bladder: The bladder is partially decompressed and grossly unremarkable. Ureteral jets were not seen. Upper abdomen: Survey images of the liver show evidence of hepatomegaly and hepatic steatosis. IMPRESSION: 1. The kidneys are normal in size and without hydronephrosis. 2. The bladder was decompressed and grossly unremarkable. 3. Hepatomegaly and hepatic steatosis. ACT 112: Negative or not required by law. Electronically signed by: Nguyễn Sun M.D. 07/13/2020 11:09 PM Dictated: 07/13/202306Transcribed: 07/13/202306 KUB CLINICAL HISTORY: Nephrolithiasis. Low back pain. FINDINGS: 2 AP supine abdominal radiograph is are correlated with abdominal CT dated 07/05/2020. A 4 mm nonobstructing calculus projects over the lower pole of the left kidney. No calcifications are seen projecting over the right kidney or along the course of the ureters. There is no bowel obstruction. Mild/moderate fecal retention is noted in the colon. The bony structures appear intact. IMPRESSION: 1. A 4 mm nonobstructing calculus projects over the lower pole of the left kidney. 2. No additional calcifications are seen projecting over either kidney or along the course of the ureters. The left ureteral stone seen on 07/05/[address] is not apparent. Electronically signed by: Nguyễn Sun M.D. 07/13/2020 11:11 PM Dictated: 07/13/202308Transcribed: 07/13/202308 Hospital Course (1) Acute pancreatitis: Present on admission with abdominal pain and back pain Lipase on admission 1864 Gallbladder u/s showed no gallstones identified. No biliary ductal dilatation. Tolerated low fat diet Denies any pain currently Gastro on board Follow up with gastro outpatient for EUS eval to r/o biliary sludge, microlithiasis, pancreatic cysts in about 4-6 week's time Ok from Gastro standpoint to discharge home Renal calculi Pt said that she passed a stone at home Renal u/s showed kidneys are normal in size and without hydronephrosis. bladder was decompressed and grossly unremarkable. KUB showed a 4 mm nonobstructing calculus projects over the lower pole of the left kidney. Asymptomatic Continue flomax Diabetes type 2 Most recent Hba1c 7.1 Continue to hold PO metformin during the hospital course Continue insulin sliding scale Continue monitor BS HTN BP elevated Continue Lisinopril Continue monitor BP Morbid Obesity BMI 53.4 Counseling on weight loss DVT px on Lovenox Code status Full code Disposition Discharge home today Total Time Total Time Spent Total Time Spent (In Minutes): 35 minutes Total Time Includes: Examination of the Patient, Discharge Planning, Medication Reconciliation, Communication With Other Providers and Other Discharge Plan Discharge Items Patient Disposition: Home - Self-Care Reason For Visit: PANCREATITIS Discharge Diagnosis: Acute pancreatitis: Renal calculi Diabetes type 2 Hypertension Morbid Obesity Activity: Resume your previous activity Non-emergency contact: Primary Care Provider and Terminal Press Operator Call non-emergency contact if: you have any medication questions and your symptoms worsen Follow-up/Referrals: Daphne Mejia DO [Primary Care Provider] - 07/19/20 9:00 am (Date & Time 07/19/2020 9:00 AM Provider Daphne Mejia DO Department [facility] ) Diet: Carb Consistent or DM2 and Low Fat Addtl Attending Provider Instructions: Follow up with your primary care provider with Dr. Mejia on 07/19/2020 at 9:00 AM at the [facility] Follow up with gastroenterology in 4 to 6 weeks to arrange for an endoscopy ultrasound to rule out biliary sludge, microlithiasis or pancreatic cysts Follow up a low fat diet Seek medical attention if your symptoms reoccur Follow a health diabetes diet, limited concentrated sweet intake and exercise Pending Studies at Discharge: No Stand-Alone Forms: My [facility] [employer], Smoking Cessation Medications and DC Order Prescriptions: Continued gabapentin 600 mg tablet 600 mg PO HS RF: 0 atorvastatin [Lipitor] 20 mg tablet 20 mg PO CQWK RF: 0 albuterol sulfate 2.5 mg /3 mL (0.083 %) Solution For Nebulization 2.5 mg INHALATION Q4H PRN (Reason: Shortness Of Breath Or Wheezing) RF: 0 citalopram 20 mg tablet 20 mg PO DAILY RF: 0 tamsulosin 0.4 mg capsule 0.4 mg PO DAILY RF: 0 lisinopril 30 mg tablet 30 mg PO DAILY RF: 0 hydrochlorothiazide 25 mg tablet 25 mg PO DAILY RF: 0 clobetasol 0.05 % ointment 1 applic TOPICAL QAM RF: 0 ondansetron 4 mg tablet,disintegrating 4 mg translingual Q6 PRN (Reason: Nausea) RF: 0 metformin 500 mg tablet extended release 24 hr 1,000 mg PO DAILY RF: 0 Discharge Orders: Discharge Order (Routine); Ordered 04/26/21 Ordered By: Elie Gilliam/Other Patient Handouts: Managing Type 2 Diabetes, Managing Diabetes: The A1C Test Admission Data Admit Date/Time: 07/14/20 01:51 Attending Provider: Elie Poe Admit Provider: Saroj Walden Primary Care Provider: Daphne Mejia Other Providers: Saroj Walden ; Rubi Garcia ; Irma Perez ; Elton Do ; Kathleen Marte ; Luciano Gutierrez ; Sushil Menjivar ; Maty Sorenson ; Yaakov Hoang ; Jakub Le ; Nilsa Velasquez ; Shelley Steele ; Emilee Ordoñez ; Chelo Muniz ; Rubén Chaparro Other Interventions: Discharge Summary Assessment (RN) Last Done: 07/15/20 14:08
== END 2020-07-15 14:30 | disposition home or self-care (01) | DRG 439 ==
LOC: ED 21:42 → 3N 07-14 01:51 → SUATTDRO 07-14 01:51 → 3N 07-14 02:27